=== PATIENT | female | born 1950 | race Two or more races ===

== ENCOUNTER 2024-12-03 08:25 | Inpatient (IN) | payer OTHER ==
[2024-12-03] VITALS (11 sets, daily range): BP systolic 92–113; BP diastolic 26–51; PULSE 67–82; RESP 15–20; TEMP 98.4–98.5; O2SAT 92–97
[~2024-12-03] VITALS: Ht 160 cm; Wt 76.8 kg
--- NOTE | 2024-12-03 09:04 | ED.PDOC ---
History of Present Illness HPI Comments 74-year-old female presents to the ER with prior surgical history of abscess removal, appendectomy in the chief complaint of general weakness with cough which started yesterday. EMS report that the patient informed them that she was recently discharged from [facility] after having removed an abscess in the buttock area. On scene the patient was hypotensive of 50/30 not being able to walk. Denies chills, fever, N/V/D, SOB, CP. No other associated symptoms, modifiers, recent injuries or sick contacts present at this time. Chief Complaint: General Weakness Time Seen by MD: 08:35 Reviewed Notes: Nurses Notes, Medications, Allergies Allergies: Coded Allergies: Codeine (Verified Allergy, Unknown, 12/03/24) Statins (Verified Allergy, Unknown, 12/03/24) Information Source: Patient Mode of Arrival: EMS Severity: Moderate Timing: Hours Duration: Since onset, Hours Prehospital treatment: None Past Medical History PAST MEDICAL HISTORY: Denies Surgical History: Appendectomy Surgical History (Other): Abscess removal in the sacral area BALLISTICS TESTER History: No Pertinent BALLISTICS TESTER History Family History Family History: Reviewed,noncontributory to illness, Unknown Social History Smoker: Non-Smoker Alcohol: Denies ETOH Use Drugs: Denies Drug Use Lives In: Home Constitutional: reports: weakness; denies: chills, diaphoresis, fatigue, fever, malaise, sweats, others EENTM: denies: blurred vision, double vision, ear bleeding, ear discharge, ear drainage, ear pain, ear ringing, eye pain, eye redness, hearing loss, mouth pain, mouth swelling, nasal discharge, nose bleeding, nose congestion, nose pain, photophobia, tearing, throat pain, throat swelling, voice changes, others Respiratory: reports: cough; denies: hemoptysis, orthopnea, SOB at rest, shortness of breath, SOB with excertion, stridor, wheezing, others Cardiovascular: denies: chest pain, dizzy spells, diaphoresis, Dyspnea on exe rtion, edema, irregular heart beat, left arm pain, lightheadedness, palpitations, PND, syncope, others Gastrointestinal: denies: abdomen distended, abdominal pain, blood streaked bowels, constipated, diarrhea, dysphagia, difficulty swallowing, hematemesis, melena, nausea, poor appetite, poor fluid intake, rectal bleeding, rectal pain, vomiting, others Genitourinary: denies: abnormal vagina bleeding, burning, dyspareunia, dysuria, flank pain, frequency, hematuria, incontinence, pain, , vagina discharge, urgency, others Neurological: denies: dizziness, fainting, headache, left sided numbness, left sided weakness, numbness, paresthesia, pre-existing deficit, right sided numbness, right sided weakness, seizure, speech problems, tingling, tremors, weakness, others Musculoskeletal: denies: back pain, gout, joint pain, joint swelling, muscle pain, muscle stiffness, neck pain, others Integumetry: reports: wounds (Sacrum has a 1 in incisional wound no discharge, mild redness surrounding it); denies: bruises, change in color, change in hair/nails, dryness, laceration, lesions, lumps, rash Allergic/Immunocompromised: denies: Difficulty Healing, Frequent Infections, Hives, Itching, others Hematologic/Lymphatic: denies: anemia, blood clots, easy bleeding, easy bruising, swollen glands, others Endocrine: denies: excessive hunger, excessive sweating, excessive thirst, excessive urination, flushing, intolerance to cold, intolerance to heat, unexplained weight gain, unexplained weight loss, others Psychiatric: denies: anxiety, bipolar disorder, depression, hopeless, panic disorder, schizophrenia, sleepless, suicidal, others All Other Systems: Reviewed and Negative Physical Exam Exam Comments Sacrum has a 1 in incisional wound no discharge, mild redness surrounding it General Appearance: No Apparent Distress, Normal HEENT: Normal ENT Inspection, Pharynx Normal, TMs Normal Neck: Full Range of Motion, Non-Tender, Normal, Normal Inspection Respiratory: Chest Non-Tender, Lungs Clear, No Accessory Muscle Use, No Respiratory Distress, Normal Breath Sounds Cardiovascular: No Edema, No JVD, No Murmur, No Gallop, Normal Peripheral Pulses, Regular Rate/Rhythm Breast Exam: Deferred Gastrointestinal: No Organomegaly, Non Tender, No Pulsatile Mass, Normal Bowel Sounds, Soft Genitalia: Deferred Pelvic: Deferred Rectal: Deferred Extremities: No calf tenderness, Normal capillary refill, Normal inspection, Normal range of motion, Non-tender, No pedal edema Musculoskeletal : Apperance: Normal Neurologic: Alert, cotton buyer II-XII nml as Tested, No Motor Deficits, Normal Affect, Normal Mood, No Sensory Deficits Cerebellar Function: Normal Reflexes: Normal Skin: Dry, Normal Color, Warm Lymphatic: No Adenopathy Was a procedure done? Was a procedure done?: No EKG EKG : Pulse Rate (adult): 87 [place]: Normal Cardiac Rhythm: NSR Block: None Hypertrophy: None ST: Normal Differential Dx Considerations may include: sepsis, dehydration, renal failure, electrolyte disorders, pneumonia, colitis, uti X-Ray, Labs, Meds, VS Vital Signs Date Time Temp Pulse Resp B/P (MAP) Pulse Ox O2 Delivery O2 Flow Rate FiO2 12/03/24 11:02 77 20 105/42 (63) 95 12/03/24 09:56 78 12/03/24 09:46 77 17 119/47 (71) 95 12/03/24 09:46 77 12/03/24 08:50 78 20 97 Room Air* 0 21 12/03/24 08:49 97.5 96 17 88/21 (43) 96 97.5 12/03/24 08:34 98.5 86 24 76/40 (52) 96 98.5 12/03/24 08:30 87 Lab Test 12/03/24 09:14 12/03/24 08:48 Range/Units White Blood Count 17.3 H 4.4-10.8 10^3/uL Red Blood Count 3.71 L 4.0-5.20 10^6/uL Hemoglobin 11.4 L 12.2-16.2 g/dL Hematocrit 33.6 L 36.0-46.0 % Mean Corpuscular Volume 90.6 80.0-100.0 fL Mean Corpuscular Hemoglobin 30.8 28.0-32.0 pg Mean Corpuscular Hemoglobin Concent 34.0 32.0-36.0 g/dL Red Cell Distribution Width 15.1 H 11.8-14.3 % Platelet Count 406 140-450 10^3/uL Mean Platelet Volume 6.9 6.9-10.8 fL Neutrophils (%) (Auto) 80.3 H 37.0-80.0 % Lymphocytes (%) (Auto) 10.3 10.0-50.0 % Monocytes (%) (Auto) 8.2 0.0-12.0 % Eosinophils (%) (Auto) 0.8 0.0-7.0 % Basophils (%) (Auto) 0.4 0.0-2.0 % Neutrophils # (Auto) 13.9 H 1.6-8.6 10 ^3/uL Lymphocytes # (Auto) 1.8 0.4-5.4 10 ^3/uL Monocytes # (Auto) 1.4 H 0-1.3 10 ^3/uL Eosinophils # (Auto) 0.1 0-0.8 10 ^3/uL Basophils # (Auto) 0.1 0-0.2 10 ^3/uL Nucleated Red Blood Cells 0.0 % Prothrombin Time 12.2 H 9.3-11.8 sec Prothrombin Time INR 1.17 H 0.9-1.15 Activated Partial Thromboplast Time 27.4 24.5-34.5 SEC Sodium Level 135 L 136-145 mmol/L Potassium Level 3.9 3.5-5.1 mmol/L Chloride Level 102 98-107 mmol/L Carbon Dioxide Level 26 20-31 mmol/L Anion Gap 7 5-15 Blood Urea Nitrogen 32 H 9-23 mg/dL Creatinine 1.78 H 0.550-1.02 mg/dL Glomerular Filtration Rate Calc 29 >90 mL/min BUN/Creatinine Ratio 18.0 10.0-20.0 Serum Glucose 137 H 74-106 mg/dL Lactic Acid Level 1.9 0.4-2.0 mmol/L Calcium Level 10.0 8.7-10.4 mg/dL Total Bilirubin 0.3 0.2-1.0 mg/dL Aspartate Amino Transferase (AST) 16 13-40 U/L Alanine Aminotransferase (ALT) 12 7-40 U/L Alkaline Phosphatase 54 46-116 U/L Total Protein 6.2 5.7-8.2 g/dL Albumin 3.8 3.2-4.8 g/dL Urine Color Pending Urine Clarity Pending Urine pH Pending Urine Specific [place] Pending Urine Protein Pending Urine Ketones Pending Urine Blood Pending Urine Nitrite Pending Urine Bilirubin Pending Urine Urobilinogen Pending Urine Leukocyte Esterase Pending Urine RBC Pending Urine Microscopic WBC Pending Urine Squamous Epithelial Cells Pending Urine Bacteria Pending Urine Glucose Pending Current Medications Medications (Trade) Dose Ordered Sig/Roberto Route Start Time Stop Time Status Last Admin Lactated Ringer's 1,550 ml @ 1,550 mls/hr ONCE ONCE IV 7/14/25 09:00 12/03/24 09:59 DC 12/03/24 09:25 Vancomycin HCl 200 ml @ 200 mls/hr ONCE ONCE IV 12/03/24 09:00 12/03/24 09:59 DC 12/03/24 09:29 Time of 1ST Reevaluation: 09:05 Reevaluation 1ST: Unchanged Time of 2ND Reevaluation: 12:01 Patient Education/Counseling: Diagnosis, Treatment, Prognosis Family Education/Counseling: No Family Present SEPSIS Sepsis Screen Date sepsis recognized/suspect: Dec 03, 2024 Time Sepsis recognized/suspect: 826 Recent Procedure: Yes On Antibiotic Therapy: Yes Respiratory Rate >20: Yes Heart Rate >90: No Temp<36 C (96.8 F) or >38.3 C: No SBP <90 or MAP <65 mmHG: Yes New Acute Mental Status Change: No Is the patient on CPAP, BIPAP,: No Physician Orders Urinalysis (12/03/24 08:53) Chest Portable (12/03/24 08:53) Accucheck (12/03/24 08:53) Blood Culture (12/03/24 08:53) Cefepime 1gm/ 50ml (Maxipime 1gm/50ml) (12/03/24 14:00) Notify Md If Map <65 Or Bp<90 (12/03/24 08:53) If Map<65 Start Vasopressor (12/03/24 08:53) Sepsis Reassesment After Fluid (12/03/24 09:53) Ct Ab Pel Wo Con-No Oral Or Iv (12/03/24 12:00) Vital Signs Date Time Temp Pulse Resp B/P (MAP) Pulse Ox O2 Delivery O2 Flow Rate FiO2 12/03/24 11:02 77 20 105/42 (63) 95 12/03/24 09:56 78 12/03/24 09:46 77 17 119/47 (71) 95 12/03/24 09:46 77 12/03/24 08:50 78 20 97 Room Air* 0 21 12/03/24 08:49 97.5 96 17 88/21 (43) 96 97.5 12/03/24 08:34 98.5 86 24 76/40 (52) 96 98.5 12/03/24 08:30 87 Laboratory Tests Test 12/03/24 09:14 Lactic Acid Level 1.9 mmol/L (0.4-2.0) White Blood Count 17.3 10^3/uL (4.4-10.8) H Medications Medications Dose Ordered Sig/Roberto Route Start Time Stop Time Status Last Admin Dose Admin Lactated Ringer's 1,550 ml @ 1,550 mls/hr ONCE ONCE IV 12/03/24 09:00 12/03/24 09:59 DC 12/03/24 09:25 Vancomycin HCl 200 ml @ 200 mls/hr ONCE ONCE IV 12/03/24 09:00 12/03/24 09:59 DC 12/03/24 09:29 Reassessment Post Fluid SEPSIS FOCUS EXAM(REASSESSMENT Sepsis reassessment focused exam completed. Date: 12/03/24 Time 09:58 Date of Reassessment: Dec 03, 2024 Time of Reassessment: 11:00 Temperature: 97.5 Systolic BP: 105 Blood Pressure Time: 11:00 Respiration: 20 Oxygen Saturation: 95 Pulse rate: 77 Pulse Location: Radial Pulse Strength: Normal Capillary Refill Exam: < 3 seconds Skin Temperature: Warm Skin Tugor: WNL Skin Color: WNL Fingernail Color: WNL Departure 1 Departure Time of Disposition: 12:04 Impression: Primary Impression: Sepsis Qualified Codes: A41.9 - Sepsis, unspecified organism; R65.21 - Severe sepsis with septic shock; N17.9 - Acute kidney failure, unspecified Additional Impressions: Prerenal acute renal failure Dehydration Diarrhea Qualified Codes: R19.7 - Diarrhea, unspecified Disposition: ADMITTED INPATIENT Admit to: [facility] Condition: Serious Discharged With: Self Critical Care Note Critical Care Time?: Yes (55 min-critical care time only) Critical care comment: Due to concerns for patients condition deteriorating, the care required my highest level of attention and readiness to intervene. I assessed the patient, reviewed the medical records, ordered the appropriate tests and treatments, then reassessed for results and responsiveness. I communicated with medical personnel and consultants and formulated a plan of care. Total critical care time excludes any procedures Stability Stability form required: No I personally scribed for DANI BANEGAS MD ([email or web address]) on 12/03/24 at 09:04. Electronically submitted by Husam Beckett ([email or web address]). I personally scribed for DANI [facility]AS [facility] on 12/03/24 at 09:46. Electronically submitted by Husam Beckett ([email or web address]). DANI BANEGAS MD Dec 03, 2024 09:04
--- NOTE | 2024-12-03 09:17 | ECG ---
[facility] Test Date: 2024-12-03 Test Time: 08:30:26 Pat Name: TONO JIMÉNEZ Department: ED Room: Gender: F Cupola Tender: : 1950 Requested By: DANI BANEGAS Order Number: [id number] Reading MD: Chilo Barnes Measurements Intervals [place] Rate: 87 P: 63 [place]: 163 QRS: 60 QRSD: 107 T: 32 QT: 459 QTc: 553 Interpretive Statements Sinus rhythm Atrial premature complex Low voltage, precordial leads Borderline abnrm T, anterolateral leads Prolonged QT interval Baseline wander in lead(s) II,III,aVF Electronically Signed On 12-03-2024 19:34:41 PDT by Chilo Barnes Please click the below link to view image of tracing.
--- NOTE | 2024-12-03 09:19 | DVH ---
CHEST RADIOGRAPH Indication: sepsis Technique: Single frontal view of the chest was obtained COMPARISON: None FINDINGS: Lines and Tubes: None Lungs: Clear Pleura: No effusion. No pneumothorax. Cardiomediastinal contours: Unremarkable Bones: Unremarkable IMPRESSION: No acute disease.
[2024-12-03] MEDS: LACTATED RINGER'S 1,550 ML IV ONE (09:25)
[2024-12-03] MEDS: VANCOMYCIN 1GM/200ML PM 200 ML IV ONE (09:29)
[2024-12-03 09:39] LABS: Hematocrit 33.6 % (36.0-46.0); Hemoglobin 11.4 g/dL (12.2-16.2); Mean Corpuscular Hemoglobin 30.8 pg (28.0-32.0); Mean Corpuscular Volume 90.6 fL (80.0-100.0); Nucleated Red Blood Cells % 0.0 %
[2024-12-03 09:48] LABS: INR 1.17 (0.9-1.15); Partial Thromboplastin Time 27.4 SEC (24.5-34.5); Prothrombin Time 12.2 sec (9.3-11.8)
[2024-12-03 09:54] LABS: Alanine Aminotransferase 12 U/L (7-40); Albumin 3.8 g/dL (3.2-4.8); Alkaline Phosphatase 54 U/L (46-116); Anion Gap 7 (5-15); BUN/Creatinine Ratio 18.0 (10.0-20.0); Calcium 10.0 mg/dL (8.7-10.4); Carbon Dioxide 26 mmol/L (20-31); Chloride 102 mmol/L (98-107); Potassium 3.9 mmol/L (3.5-5.1); Total Protein 6.2 g/dL (5.7-8.2)
[2024-12-03 09:57] LABS: Bilirubin, Total 0.3 mg/dL (0.2-1.0); Blood Urea Nitrogen 32 mg/dL (9-23); Glucose 137 mg/dL (74-106); Sodium 135 mmol/L (136-145)
--- NOTE | 2024-12-03 09:59 | ECG ---
[facility] Test Date: 2024-12-03 Test Time: 09:56:05 Pat Name: TONO JIMÉNEZ Department: ER Room: Gender: F School Director: : 1950 Requested By: DANI BANEGAS Order Number: [id number] Reading MD: Chilo Barnes Measurements Intervals [place] Rate: 78 P: 79 MD: 195 QRS: 47 QRSD: 114 T: 31 QT: 399 QTc: 455 Interpretive Statements Sinus rhythm Borderline intraventricular conduction delay Low voltage, precordial leads Nonspecific T abnormalities, anterior leads Electronically Signed On 12-03-2024 19:35:37 PDT by Chilo Barnes Please click the below link to view image of tracing.
[2024-12-03 12:08] LABS: Urine Budding Yeast OCCASIONAL /hpf (None Seen); Urine Protein, UAD Negative (Negative)
[2024-12-03] MEDS: NOREPINEPHRINE 8 MG/250ML KIT 250 ML IV ONE (12:50)
[2024-12-03] MEDS: NOREPINEPHRINE 8 MG/250ML KIT 250 ML IV SCH (13:00)
--- NOTE | 2024-12-03 13:04 | DVH ---
Indication: r/o colitis Technique: CT axial images of the abdomen and pelvis are obtained without contrast. Coronal and sagit yvonne reformats were obtained. Radiation Dose Information: CTDI volume is 17.16 mGy. Dose-length product is 895.01 mGy*cm Comparison: None FINDINGS: There is limited interpretation of the abdomen and pelvis without administration of intravenous contr ast. Lung bases demonstrate atelectasis. Tiny bilateral pleural effusions. Adrenal glands, spleen, pancreas unremarkable in shape. m no CT evidence for cholelithiasis. Left hep atic lobe measuring 7 mm, not adequately characterized. The kidneys demonstrate no hydronephrosis. Nonobstructing right renal calculus measuring 2 mm. Stomach is partially distended. Small bowel loops are normal in caliber. There is right perianal/medial gluteal region soft tissue stranding and soft tissue emphysema. Recta l/ anal wall thickening. Colonic diverticula. Large volume stool throughout the colon. Sigmoid wall t hickening with mild surrounding stranding. Abdominal aortic atherosclerotic disease. Bladder decompressed by Chang catheter. No inguinal lymphad enopathy. Moderate to advanced lumbar degenerative disc disease most pronounced in the lumbar spine. Multilevel vacuum disc phenomena. IMPRESSION: Right perianal region/right medial soft tissue stranding and soft tissue emphysema which could be sec ondary to infectious, inflammatory etiologies. There is associated rectal/anal wall thickening, poss ibly secondary to proctocolitis. Recommend GI consultation to exclude any type of underlying rectal/ anal mass/lesion. Large volume stool within the colon. Colonic diverticular disease. Sigmoid wall thickening with surrounding stranding may represent diver ticulitis. Recommend GI consultation for colonoscopy once acute symptoms resolve to exclude underlyi ng sigmoid colon lesion. Tiny bilateral pleural effusions. Atherosclerotic, coronary artery calcification disease. Indeterminate left hepatic lobe hypodense lesion measuring 7 mm. Further evaluation with a multiphasi c MRI abdomen with and without contrast can be obtained to evaluate. Other findings as described
[2024-12-03] MEDS ORDERED: ONDANSETRON HCL 4 MG/2 ML VIAL IV PRN (13:15)
[2024-12-03] MEDS ORDERED: NITROGLYCERIN 0.4 MG SL TAB SL PRN ×2 (13:15→13:45)
[2024-12-03] MEDS ORDERED: VANCOMYCIN PER PHARMACY 0 MG IV SCH (13:15)
[2024-12-03] MEDS ORDERED: DOCUSATE SOD 100 MG CAP PO PRN (13:15)
[2024-12-03] MEDS ORDERED: MORPHINE SULFATE INJ 2 MG/ml SYRG IV PRN ×2 (13:15→14:15)
--- NOTE | 2024-12-03 13:30 | DVHHP2 ---
History of Present Illness Reason for Visit: Generalized weakness History of Present Illness The patient is a 74-year-old female with past medical history of appendicitis who presented to [facility] ED with complaint of generalized weakness. As reported by EMS, patient was recently discharged from [facility] after having remove an abscess in the buttocks area, hypotensive on the scene of 50/30, unable to work. Patient was stabilized EN route to our facility ED. patient was seen and evaluated in the ED, laboratory data shows WBC 17.3, hemoglobin 11.4, hematocrit 33.6, platelets 406, sodium 135, potassium 3.9, BUN 32, creatinine 1.78, glucose 137, calcium 10.0, blood pressure 88/21 trending up to 90/37, heart rate 72, temperature 97.6 F, O2 saturation 96% on oxygen. Abdomen/pelvis CT revealing right perianal region/right medial soft tissue stranding and soft tissue emphysema which could be secondary to infectious, inflammatory etiologies; this is associated rectal/and now wall thickening, possibly secondary to proctocolitis. Patient was started on IV Levophed, antibiotic regimen vancomycin, please see medication orders section in the computer. On my assessment, patient denied chest pain, no headache, no dizziness, no diaphoresis, no shortness of breath, no nausea, no vomiting, no fever, no chills. Patient was admitted for further evaluation and medical management. Past Medical History Appendicitis, scrotal abscess Past Surgical History Appendectomy, Abscess removal in the sacral area Family History Reviewed, noncontributory to the management of this case. Past Social History The patient lives at home, denies smoking, alcohol or illicit drugs abuse. Review of Systems Constitutional: Yes: Weakness; No: Fever, Chills, Sweats, Malaise, Other Eyes: No: Pain, Vision change, Conjunctivae inflammation, Eyelid inflammation, Other, Redness ENT: No: Ear pain, Ear discharge, Nose pain, Nose discharge, Nose congestion, Mouth pain, Mouth swelling, Throat pain, Throat swelling, Other Respiratory: Cough; No: Dry, Shortness of breath, SOB with excertion, Wheezing, Hemoptysis, Pleuritic Pain, Sputum, Wheezing, Other Cardiovascular: Other (Hypotension); No: Chest Pain, Palpitations, Orthopnea, Paroxysmal Noc. Dyspnea, Edema, Lt Headedness Gastrointestinal: No: Nausea, Vomiting, Abdominal Pain, Diarrhea, Constipation, Melena, Hematochezia, Other Genitourinary: No Dysuria, No Frequency, No Incontinence, No Hematuria, No Retention, No Other Musculoskeletal: No: other, neck pain, shoulder pain, arm pain, back pain, hand pain, leg pain, foot pain Skin: Other (Sacrum has a 1 in incisional wound no discharge, mild redness surrounding it.); No: Rash, Lesions, Jaundice, Bruising Neurological: Weakness; No: Numbness, Incoordination, Change in speech, Confusion, Seizures, Other Allergies: Coded Allergies: Codeine (Verified Allergy, Unknown, 12/03/24) Statins (Verified Allergy, Unknown, 12/03/24) Medications Current Medications Medications Dose Ordered Sig/Roberto Route Start Time Stop Time Status Last Admin Dose Admin Cefepime HCl 50 ml @ 12.5 mls/hr Q8HR IV 12/03/24 14:00 Norepinephrine Bitartrate 250 ml @ 3.75 mls/hr Q24H IV 12/03/24 13:00 12/03/24 13:00 3.75 MLS/HR Exam Vital Signs Vital Signs Date Time Temp Pulse Resp B/P (MAP) Pulse Ox O2 Delivery O2 Flow Rate FiO2 12/03/24 13:00 90/37 12/03/24 12:44 71 18 95 12/03/24 08:50 Room Air* 0 21 12/03/24 08:49 97.5 97.5 General Appearance: Alert, Oriented X3, Cooperative, No acute distress HEENT: Atraumatic, PERRLA, EOMI, Mucous membr. moist/pink Respiratory: Normal air movement Cardiovascular: Regular rate, Normal S1, Normal S2, No murmurs Abdominal: Normal bowel sounds, Soft, No tenderness, No hepatospenomegaly, No masses Extremities: No clubbing, No cyanosis, No edema, Normal pulses, No tenderness/swelling Skin: No rashes, No significant lesion Neuro: Normal speech, Normal tone, Sensation intact, Cranial nerves 3-12 NL, Reflexes 2+, Other (Generalized weakness) Psych/Mental Status: Mental status NL, Mood NL Labs/Xrays Labs Test 12/03/24 09:14 12/03/24 08:48 Range/Units White Blood Count 17.3 H 4.4-10.8 10^3/uL Red Blood Count 3.71 L 4.0-5.20 10^6/uL Hemoglobin 11.4 L 12.2-16.2 g/dL Hematocrit 33.6 L 36.0-46.0 % Mean Corpuscular Volume 90.6 80.0-100.0 fL Mean Corpuscular Hemoglobin 30.8 28.0-32.0 pg Mean Corpuscular Hemoglobin Concent 34.0 32.0-36.0 g/dL Red Cell Distribution Width 15.1 H 11.8-14.3 % Platelet Count 406 140-450 10^3/uL Mean Platelet Volume 6.9 6.9-10.8 fL Neutrophils (%) (Auto) 80.3 H 37.0-80.0 % Lymphocytes (%) (Auto) 10.3 10.0-50.0 % Monocytes (%) (Auto) 8.2 0.0-12.0 % Eosinophils (%) (Auto) 0.8 0.0-7.0 % Basophils (%) (Auto) 0.4 0.0-2.0 % Neutrophils # (Auto) 13.9 H 1.6-8.6 10 ^3/uL Lymphocytes # (Auto) 1.8 0.4-5.4 10 ^3/uL Monocytes # (Auto) 1.4 H 0-1.3 10 ^3/uL Eosinophils # (Auto) 0.1 0-0.8 10 ^3/uL Basophils # (Auto) 0.1 0-0.2 10 ^3/uL Nucleated Red Blood Cells 0.0 % Prothrombin Time 12.2 H 9.3-11.8 sec Prothrombin Time INR 1.17 H 0.9-1.15 Activated Partial Thromboplast Time 27.4 24.5-34.5 SEC Sodium Level 135 L 136-145 mmol/L Potassium Level 3.9 3.5-5.1 mmol/L Chloride Level 102 98-107 mmol/L Carbon Dioxide Level 26 20-31 mmol/L Anion Gap 7 5-15 Blood Urea Nitrogen 32 H 9-23 mg/dL Creatinine 1.78 H 0.550-1.02 mg/dL Glomerular Filtration Rate Calc 29 >90 mL/min BUN/Creatinine Ratio 18.0 10.0-20.0 Serum Glucose 137 H 74-106 mg/dL Lactic Acid Level 1.9 0.4-2.0 mmol/L Calcium Level 10.0 8.7-10.4 mg/dL Total Bilirubin 0.3 0.2-1.0 mg/dL Aspartate Amino Transferase (AST) 16 13-40 U/L Alanine Aminotransferase (ALT) 12 7-40 U/L Alkaline Phosphatase 54 46-116 U/L Total Protein 6.2 5.7-8.2 g/dL Albumin 3.8 3.2-4.8 g/dL Urine Color Yellow Yellow Urine Clarity Clear Clear Urine pH 6.0 5.0-9.0 Urine Specific Haughton 1.012 1.001-1.035 Urine Protein Negative Negative Urine Ketones Negative Negative Urine Blood Negative Negative /uL Urine Nitrite Negative Negative Urine Bilirubin Negative Negative Urine Urobilinogen Normal Negative mg/dL Urine Leukocyte Esterase Negative Negative /uL Urine RBC 1 0 - 4 /hpf Urine Microscopic WBC 1 0-5 /HPF Urine Squamous Epithelial Cells Few <5 /hpf Urine Bacteria None seen None Seen /hpf Urine Yeast (Budding) Occasional None Seen /hpf Urine Glucose Normal Normal mg/dL PATIENT: TONO JIMÉNEZ ACCT: [id number] UNIT: [id number] : 1950 LOC: ER ROOM / BED: / AGE / SEX: 74 / F ADM STATUS: REG ER SERVICE 99 ORDERING PHYSICIAN: DANI BANEGAS MD PROCEDURE(s): ABPL - CT AB PEL WO CON-NO ORAL OR IV REASON: r/o colitis ORDER NUMBER(s): [id number], ACCESSION NUMBER(s): [id number] Indication: r/o colitis Technique: CT axial images of the abdomen and pelvis are obtained without contrast. Coronal and sagittal reformats were obtained. Radiation Dose Information: CTDI volume is 17.16 mGy. Dose-length product is 895.01 mGy*cm Comparison: None FINDINGS: There is limited interpretation of the abdomen and pelvis without administration of intravenous contrast. Lung bases demonstrate atelectasis. Tiny bilateral pleural effusions. Adrenal glands, spleen, pancreas unremarkable in shape. m no CT evidence for cholelithiasis. Left hepatic lobe measuring 7 mm, not adequately characterized. The kidneys demonstrate no hydronephrosis. Nonobstructing right renal calculus measuring 2 mm. Stomach is partially distended. Small bowel loops are normal in caliber. There is right perianal/medial gluteal region soft tissue stranding and soft tissue emphysema. Rectal/anal wall thickening. Colonic diverticula. Large volume stool throughout the colon. Sigmoid wall thickening with mild surrounding stranding. Abdominal aortic atherosclerotic disease. Bladder decompressed by Chang catheter. No inguinal lymphadenopathy. Moderate to advanced lumbar degenerative disc disease most pronounced in the lumbar spine. Multilevel vacuum disc phenomena. IMPRESSION: Right perianal region/right medial soft tissue stranding and soft tissue emphysema which could be secondary to infectious, inflammatory etiologies. There is associated rectal/anal wall thickening, possibly secondary to proctocolitis. Recommend GI consultation to exclude any type of underlying rectal/ anal mass/lesion. Large volume stool within the colon. Colonic diverticular disease. Sigmoid wall thickening with surrounding stranding may represent diverticulitis. Recommend GI consultation for colonoscopy once acute symptoms resolve to exclude underlying sigmoid colon lesion. Tiny bilateral pleural effusions. Atherosclerotic, coronary artery calcification disease. Indeterminate left hepatic lobe hypodense lesion measuring 7 mm. Further evaluation with a multiphasic MRI abdomen with and without contrast can be obtained to evaluate. Other findings as described ORDERING PHYSICIAN: DANI BANEGAS MD PROCEDURE(s): CXRP - CHEST PORTABLE REASON: sepsis ORDER NUMBER(s): [id number], ACCESSION NUMBER(s): [id number] CHEST RADIOGRAPH Indication: sepsis Technique: Single frontal view of the chest was obtained COMPARISON: None FINDINGS: Lines and Tubes: None Lungs: Clear Pleura: No effusion. No pneumothorax. Cardiomediastinal contours: Unremarkable Bones: Unremarkable IMPRESSION: No acute disease. SEPSIS Sepsis Screen Date sepsis recognized/suspect: Dec 03, 2024 Time Sepsis recognized/suspect: 914 Recent Procedure: No On Antibiotic Therapy: No Respiratory Rate >20: No Heart Rate >90: No Temp<36 C (96.8 F) or >38.3 C: No SBP <90 or MAP <65 mmHG: Yes New Acute Mental Status Change: No Is the patient on CPAP, BIPAP,: No Physician Orders Chest Portable (12/03/24 08:53) Accucheck (12/03/24 08:53) Blood Culture (12/03/24 08:53) Cefepime 1gm/ 50ml (Maxipime 1gm/50ml) (12/03/24 14:00) Notify Md If Map <65 Or Bp<90 (12/03/24 08:53) If Map<65 Start Vasopressor (12/03/24 08:53) Sepsis Reassesment After Fluid (12/03/24 09:53) Ct Ab Pel Wo Con-No Oral Or Iv (12/03/24 12:00) Norepinephrine 8 Mg/250ml Kit (Levophed) (12/03/24 13:00) Vancomycin Per Pharmacy (12/03/24 13:15) * Cardiology Consult (12/03/24 13:14) *[facility] (12/03/24 13:14) Admit (12/03/24 13:14) Allergies (12/03/24 13:14) Code Status (12/03/24 13:14) 0.9% Ns 1000 Ml (12/03/24 13:15) Oxygen Per Hour (12/03/24 13:14) Ondansetron Hcl (Zofran) (12/03/24 13:15) Docusate Sodium Capsule (Colace Capsule) (12/03/24 13:15) Fall Risk Precautions In Place QSHIFT (12/03/24 13:14) Complete Blood Count (12/04/24 04:00) Comprehensive Metabolic Panel (12/04/24 04:00) Cardiac Diet-2gna,Lofat,Lochol (12/03/24 Lunch) Condition: Serious (12/03/24 13:14) Acetaminophen Tablet (Tylenol Tablet) (12/03/24 13:15) Maintain Bed Rest (12/03/24 13:14) Sequential Compression Device (12/03/24 ) Nitroglycerin Sublingual (Ntrostat Subli (12/03/24 13:15) Morphine Sulfate Injection (12/03/24 13:15) Stat Ekg For Chest Pain (12/03/24 13:14) Notify Md Of Changes From Base (12/03/24 13:14) Solid Die Cutter For 24 Hours (12/03/24 13:14) Emergency Dysrhythmia Protocol (12/03/24 13:14) Rhythm Strips Once Every Shift (12/03/24 13:14) Oxygen By Nasal Cannula (12/03/24 13:14) Vital Signs Date Time Temp Pulse Resp B/P (MAP) Pulse Ox O2 Delivery O2 Flow Rate FiO2 7/14/25 13:00 90/37 12/03/24 12:44 71 18 90/37 (54) 95 12/03/24 12:00 79 12/03/24 11:02 77 20 105/42 (63) 95 12/03/24 09:56 78 12/03/24 09:46 77 17 119/47 (71) 95 12/03/24 09:46 77 12/03/24 08:50 78 20 97 Room Air* 0 21 12/03/24 08:49 97.5 96 17 88/21 (43) 96 97.5 12/03/24 08:34 98.5 86 24 76/40 (52) 96 98.5 12/03/24 08:30 87 Laboratory Tests Test 12/03/24 09:14 Lactic Acid Level 1.9 mmol/L (0.4-2.0) White Blood Count 17.3 10^3/uL (4.4-10.8) H Medications Medications Dose Ordered Sig/Roberto Route Start Time Stop Time Status Last Admin Dose Admin Lactated Ringer's 1,550 ml @ 1,550 mls/hr ONCE ONCE IV 12/03/24 09:00 12/03/24 09:59 DC 12/03/24 09:25 1,550 MLS/HR Norepinephrine Bitartrate 250 ml @ 3.75 mls/hr Q24H IV 12/03/24 13:00 12/03/24 13:00 3.75 MLS/HR Vancomycin HCl 200 ml @ 200 mls/hr ONCE ONCE IV 12/03/24 09:00 12/03/24 09:59 DC 12/03/24 09:29 200 MLS/HR Reassessment Post Fluid Date of Reassessment: Dec 03, 2024 Time of Reassessment: 11:00 Temperature: 97.5 Systolic BP: 105 Blood Pressure Time: 11:00 Respiration: 20 Oxygen Saturation: 95 Pulse rate: 77 Pulse Location: Radial Pulse Strength: Normal Capillary Refill Exam: < 3 seconds Skin Temperature: Warm Skin Tugor: WNL Skin Color: WNL Fingernail Color: WNL Assessment/Plan Assessment/Plan Sepsis, unspecified organism Severe sepsis with septic shock Dehydration Prerenal acute renal failure Diarrhea, unspecified Generalized weakness Acute kidney failure, unspecified Plan 1. Admit to intensive care unit 2. Breathing treatment 3. Pain control management 4. IV antibiotic management 5. Management of fluids and electrolytes 6. Consultation for Cardiology/Nephrology 7. Diagnostic test abdomen/pelvis CT 8. DVT prophylaxis on SCDs 9. Repeat labs CBC, CMP in a.m. 10. Home medication reviewed and reconciled 11. Continue with current medical management 12. Treatment plan discussed with patient and RN. Patient verbalized understanding. Plan discussed with: Patient, Other (RN) My Orders Orders - LARISSA CLEMENTS DNP Procedure Category Date Status Time Vancomycin Per PHA 12/03/24 Transmitted Pharmacy 13:15 * Cardiology Consult CONS 12/03/24 Transmitted 13:14 *[facility] CONS 12/03/24 Transmitted -[place] 13:14 Admit ADMIT 12/03/24 Transmitted 13:14 Allergies [facility] 12/03/24 Transmitted 13:14 Code Status CODE 12/03/24 Transmitted 13:14 0.9% Ns 1000 Ml PHA 12/03/24 Transmitted 13:15 Oxygen Per Hour RT 12/03/24 Transmitted 13:14 Ondansetron Hcl [facility] 12/03/24 Transmitted (Zofran) 13:15 Docusate Sodium [facility] 12/03/24 Transmitted Capsule (Colace 13:15 Fall Risk Precautions [facility] 12/03/[address] 13:14 Complete Blood Count LAB 12/04/24 Verified 04:00 Comprehensive LAB 12/04/24 Verified Metabolic Panel 04:00 Cardiac DIET 12/03/24 Transmitted Diet-2gna,Lofat,Lochol Lunch Condition: Serious [facility] 12/03/24 Transmitted 13:14 Acetaminophen Tablet [facility] 12/03/24 Transmitted (Tylenol Tablet) 13:15 Maintain Bed Rest [facility] 12/03/24 Transmitted 13:14 Sequential [facility] 12/03/24 Transmitted Compression Device Nitroglycerin [facility] 12/03/24 Transmitted Sublingual (Ntrostat 13:15 Morphine Sulfate [facility] 12/03/24 Transmitted Injection 13:15 Stat Ekg For Chest [facility] 12/03/24 Transmitted Pain 13:14 Notify Of Changes [facility] 12/03/24 Transmitted From Base 13:14 Solid Die Cutter For [facility] 12/03/24 Transmitted 24 Hours 13:14 Emergency Dysrhythmia [facility] 12/03/24 Transmitted Protocol 13:14 Rhythm Strips Once [facility] 12/03/24 Transmitted Every Shift 13:14 Oxygen By Nasal RT 12/03/24 Transmitted Cannula 13:14 Problem List: (1) Sepsis, unspecified organism (2) Severe sepsis with septic shock (3) Dehydration (4) Diarrhea, unspecified (5) Prerenal acute renal failure (6) Generalized weakness (7) Acute kidney failure, unspecified Date of Service: Dec 03, 2024 Billing Provider: LARISSA CLEMENTS DNP Common Visit Codes: [id number] INP/OBS CARE (HIGH) LARISSA CLEMENTS DNP Dec 03, 2024 13:30
[2024-12-03] MEDS: CEFEPIME 1GM/ 50ML 50 ML IV SCH (14:18)
[2024-12-03] MEDS: SODIUM CHLORIDE 0.9% 1,000 ML IV SCH (14:19)
[2024-12-03 15:37] LABS: Triglycerides 115.0 mg/dL (< 150)
[2024-12-03 15:38] LABS: Magnesium 1.7 mg/dL (1.6-2.6)
[2024-12-03 15:39] LABS: Cholesterol 129.0 mg/dL (< 200)
[2024-12-03 15:40] LABS: HDL Cholesterol 31.0 mg/dL (40-59)
--- NOTE | 2024-12-03 16:35 | DVHINCON2 ---
Date Seen: Dec 03, 2024 Referring Physician CINDY Sutton Reason for Consultation Hypotension History of Present Illness This is a 74-year-old female patient who presents to emergency room with chief complaint of generalized weakness, chills, and cough for approximately one week. The patient reports that she was recently seen at [facility] where she was diagnosed with a abscess on her buttock and underwent an incision and drainage. She states that she was sent home on antibiotics. Cardiology has been consulted at this time for hypotension. Initial twelve lead electrocardiogram reveals normal sinus rhythm with PAC, prolonged QTC interval and artifact seen in multiple leads. At the time of assessment, the patient is in normal sinus rhythm on nephrologist with frequent PACs and PVCs. No troponin levels drawn at time of assessment. The patient denies any cardiac symptoms at time of assessment. Significant past medical history includes hypertension, buttock abscess status post I&D, tobacco use, and dementia. Past Medical History Past medical history reviewed. No other significant than mentioned above. Past Surgical History Hysterectomy Corneal transplant Family History Family history reviewed. Social History Patient has a 15 pack-year history, quit smoking approximately 40 years ago Denies any alcohol use Denies any illicit drug use Allergies: Coded Allergies: Codeine (Verified Allergy, Unknown, 12/03/24) Statins (Verified Allergy, Unknown, 12/03/24) Home Meds Home medications reviewed. Current Medications Current Medications Medications (Trade) Dose Ordered Sig/Roberto Route PRN Reason Start Time Stop Time Status Last Admin Cefepime HCl 50 ml @ 12.5 mls/hr Q8HR IV 12/03/24 14:00 12/03/24 14:18 Norepinephrine Bitartrate 250 ml @ 3.75 mls/hr Q24H IV 12/03/24 13:00 12/03/24 13:00 Vancomycin HCl 0 ml @ 0 mls/hr UD IV 12/03/24 13:15 Sodium Chloride 1,000 ml @ 60 mls/hr [id number] IV 12/03/24 13:15 12/03/24 14:19 Ondansetron HCl (Zofran) 4 mg Q4HP PRN IV NAUSEA / VOMITING 12/03/24 13:15 Docusate Sodium (Colace Capsule) 100 mg BIDPRN PRN PO FOR CONSTIPATION 12/03/24 13:15 Acetaminophen (Tylenol Tablet) 650 mg Q6HP PRN PO PAIN SCALE 1-3 OR TEMP>100.4 12/03/24 13:15 Nitroglycerin (Ntrostat Sublingual) 0.4 mg Q5MINP PRN SL FOR CHEST PAIN 12/03/24 13:15 12/03/24 14:11 DC Morphine Sulfate 2 mg Q30M PRN IV FOR CHEST PAIN 12/03/24 13:15 12/03/24 14:11 DC Morphine Sulfate 2 mg Q30M PRN IV FOR CHEST PAIN 12/03/24 14:15 Nitroglycerin (Ntrostat Sublingual) 0.4 mg Q5MINP PRN SL FOR CHEST PAIN 12/03/24 13:45 Review of Systems Constitutional: Generalized weakness, chills Ears, Nose, & Throat: No symptom reported Eyes: No symptom reported Neurological: No symptoms reported Pulmonary/Respiratory: Cough Cardiovascular: No symptom reported Gastrointestinal: No symptom reported Genitourinary: No symptom reported Musculoskeletal: No symptom reported Skin: No symptom reported Psychiatric: No symptom reported Endocrine: No symptom reported Hematologic/Lymphatic: No symptom reported Vital Signs Vital Signs Date Time Temp Pulse Resp B/P (MAP) Pulse Ox O2 Delivery O2 Flow Rate FiO2 12/03/24 15:15 67 17 100/32 (54) 95 12/03/24 08:50 Room Air* 0 21 12/03/24 08:49 97.5 97.5 Physical Exam General Appearance: Cooperative. Well-developed. Well-nourished. No acute distress. Pulmonary/Respiratory: Clear, bilateral breaths sounds. Cardiovascular/Chest: Regular rate and rhythm. Peripheral Pulses: 2+ Radial (R). 2+ Radial (L). 2+ Pedal (R). 2+ Pedal (L) Abdominal Exam: Normal bowel sounds. Ankle Exam: Negative ankle edema Lower extremities: Negative lower extremity edema Neuro/Mental Status: A/OX3, coherent but forgetful. Thoughts/Psych: Normal thought pattern. Appropriate mood and affect. Good judgment and insight. Appearance: No acute distress. Skin Exam: Normal inspection. Normal color. Warm and dry. Labs/Diagnostic Data Labs Test 12/03/24 14:10 12/03/24 09:14 12/03/24 08:48 Range/Units POC Glucose 97 70-106 mg/dl White Blood Count 17.3 H 4.4-10.8 10^3/uL Red Blood Count 3.71 L 4.0-5.20 10^6/uL Hemoglobin 11.4 L 12.2-16.2 g/dL Hematocrit 33.6 L 36.0-46.0 % Mean Corpuscular Volume 90.6 80.0-100.0 fL Mean Corpuscular Hemoglobin 30.8 28.0-32.0 pg Mean Corpuscular Hemoglobin Concent 34.0 32.0-36.0 g/dL Red Cell Distribution Width 15.1 H 11.8-14.3 % Platelet Count 406 140-450 10^3/uL Mean Platelet Volume 6.9 6.9-10.8 fL Neutrophils (%) (Auto) 80.3 H 37.0-80.0 % Lymphocytes (%) (Auto) 10.3 10.0-50.0 % Monocytes (%) (Auto) 8.2 0.0-12.0 % Eosinophils (%) (Auto) 0.8 0.0-7.0 % Basophils (%) (Auto) 0.4 0.0-2.0 % Neutrophils # (Auto) 13.9 H 1.6-8.6 10 ^3/uL Lymphocytes # (Auto) 1.8 0.4-5.4 10 ^3/uL Monocytes # (Auto) 1.4 H 0-1.3 10 ^3/uL Eosinophils # (Auto) 0.1 0-0.8 10 ^3/uL Basophils # (Auto) 0.1 0-0.2 10 ^3/uL Nucleated Red Blood Cells 0.0 % Prothrombin Time 12.2 H 9.3-11.8 sec Prothrombin Time INR 1.17 H 0.9-1.15 Activated Partial Thromboplast Time 27.4 24.5-34.5 SEC Sodium Level 135 L 136-145 mmol/L Potassium Level 3.9 3.5-5.1 mmol/L Chloride Level 102 98-107 mmol/L Carbon Dioxide Level 26 20-31 mmol/L Anion Gap 7 5-15 Blood Urea Nitrogen 32 H 9-23 mg/dL Creatinine 1.78 H 0.550-1.02 mg/dL Glomerular Filtration Rate Calc 29 >90 mL/min BUN/Creatinine Ratio 18.0 10.0-20.0 Serum Glucose 137 H 74-106 mg/dL Hemoglobin A1c 5.5 <5.7 % A1C Lactic Acid Level 1.9 0.4-2.0 mmol/L Calcium Level 10.0 8.7-10.4 mg/dL Magnesium Level 1.7 1.6-2.6 mg/dL Total Bilirubin 0.3 0.2-1.0 mg/dL Aspartate Amino Transferase (AST) 16 13-40 U/L Alanine Aminotransferase (ALT) 12 7-40 U/L Alkaline Phosphatase 54 46-116 U/L Total Protein 6.2 5.7-8.2 g/dL Albumin 3.8 3.2-4.8 g/dL Triglycerides Level 115 < 150 mg/dL Cholesterol Level 129 < 200 mg/dL LDL Cholesterol 81 < 100 mg/dL HDL Cholesterol 31 L 40-59 mg/dL Thyroid Stimulating Hormone (TSH) 1.07 0.55-4.78 uIU/mL Urine Color Yellow Yellow Urine Clarity Clear Clear Urine pH 6.0 5.0-9.0 Urine Specific [place] 1.012 1.001-1.035 Urine Protein Negative Negative Urine Ketones Negative Negative Urine Blood Negative Negative /uL Urine Nitrite Negative Negative Urine Bilirubin Negative Negative Urine Urobilinogen Normal Negative mg/dL Urine Leukocyte Esterase Negative Negative /uL Urine RBC 1 0 - 4 /hpf Urine Microscopic WBC 1 0-5 /HPF Urine Squamous Epithelial Cells Few <5 /hpf Urine Bacteria None seen None Seen /hpf Urine Yeast (Budding) Occasional None Seen /hpf Urine Glucose Normal Normal mg/dL Assessment Hypotension in the setting of severe sepsis Rule out structural heart disease Prolonged QTc interval History of hypertension Right perianal soft tissue emphysema Acute kidney injury Dementia History of tobacco use Plan/Recommendation We will continue with the following plan/recommendations (Dr. Lee): We will proceed with obtaining a transthoracic echocardiogram to evaluate c ardiac function. At the time of assessment, the patient is now off of vasopressor therapy. Hypotension likely in the setting of sepsis. Patient also admits to taking her antihypertensive medications atenolol and lisinopril this morning prior to emergency room arrival. Hold antihypertensives until blood pressure stable. Avoid medications that will further prolong QT interval as this places the patient at risk for torsades de pointes. Monitor and replete electrolytes as needed. Antibiotics per primary care team. Consider GI consult for abdomen and pelvis CT findings. In the setting of an unremarkable transthoracic echocardiogram, there is no further inpatient cardiac workup indicated at this time. Thank you for allowing us to care for this patient. Eric domínguez call with any questions or concerns. Critical time spent: 44 minutes This medical document was created using an electronic medical record system with voice recognition software and computerized dictation system. Although this document has been carefully reviewed, there might still be some phonetic and typographical errors. Occasional wrong-word or ``sound-alike substitutions may have occurred due to the inherent limitations of voice recognition software. These areas are purely typographical due to imperfections of the software programs and do not reflect any compromise in the patient's medical care. Please read the chart carefully and recognize, using context, where these substitutions have occurred. Plan discussed with: Patient NYHA Physical activity limitations: NA Date of Service: Dec 03, 2024 Billing Provider: CHYNA PAREDES Cardiology Common Codes: 34371-YTEJWMA INP/OBS CARE (High) Cardiology Consultation Codes: 45341-NCMUERQGY CONSULT <45MIN CHYNA PAREDES Dec 03, 2024 16:35
[2024-12-03] MEDS: MAGNESIUM SULFATE 1GM/100ML 100 ML IV ONE (17:37)
[2024-12-03] MEDS: ALBUMIN 5% 250 ML IV ONE (20:54)
--- NOTE | 2024-12-03 22:58 | DVHINCON2 ---
Date Seen: Dec 03, 2024 Referring Physician CINDY Sutton Reason for Consultation Hypotension History of Present Illness This is a 74-year-old female with a PMH of hypertension, buttock abscess status post I&D, tobacco use, and dementia. who presented to the ED with complaints of generalized weakness, chills, and cough for approximately one week. The patient reports that she was recently seen at [facility] where she was diagnosed with a abscess on her buttock and underwent an incision and drainage. She states that she was sent home on antibiotics. Cardiology has been consulted at this time for hypotension. Initial twelve lead electrocardiogram reveals normal sinus rhythm with PAC, prolonged QTC interval and artifact seen in multiple leads. 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 No troponin levels drawn at time of assessment. The patient denies any cardiac symptoms at time of assessment. Past Medical History Past medical history reviewed. No other significant than mentioned above. Past Surgical History Hysterectomy Corneal transplant Family History: FH: cancer G8 FATHER G8 SISTER FH: pancreatic cancer Allergies: Coded Allergies: Codeine (Verified Allergy, Unknown, 12/03/24) Statins (Verified Allergy, Unknown, 12/03/24) Current Medications Current Medications Medications (Trade) Dose Ordered Sig/Roberto Route PRN Reason Start Time Stop Time Status Last Admin Cefepime HCl 50 ml @ 12.5 mls/hr Q8HR IV 12/03/24 14:00 12/03/24 17:06 DC 12/03/24 14:18 Norepinephrine Bitartrate 250 ml @ 3.75 mls/hr Q24H IV 12/03/24 13:00 12/03/24 13:00 Vancomycin HCl 0 ml @ 0 mls/hr UD IV 12/03/24 13:15 Sodium Chloride 1,000 ml @ 60 mls/hr [id number] IV 12/03/24 13:15 12/03/24 14:19 Ondansetron HCl (Zofran) 4 mg Q4HP PRN IV NAUSEA / VOMITING 12/03/24 13:15 Docusate Sodium (Colace Capsule) 100 mg BIDPRN PRN PO FOR CONSTIPATION 12/03/24 13:15 Acetaminophen (Tylenol Tablet) 650 mg Q6HP PRN PO PAIN SCALE 1-3 OR TEMP>100.4 12/03/24 13:15 Nitroglycerin (Ntrostat Sublingual) 0.4 mg Q5MINP PRN SL FOR CHEST PAIN 12/03/24 13:15 12/03/24 14:11 DC Morphine Sulfate 2 mg Q30M PRN IV FOR CHEST PAIN 12/03/24 13:15 12/03/24 14:11 DC Morphine Sulfate 2 mg Q30M PRN IV FOR CHEST PAIN 12/03/24 14:15 Nitroglycerin (Ntrostat Sublingual) 0.4 mg Q5MINP PRN SL FOR CHEST PAIN 12/03/24 13:45 Cefepime HCl 50 ml @ 12.5 mls/hr DAILY IV 12/04/24 10:00 Review of Systems Constitutional: Generalized weakness, chills Ears, Nose, & Throat: No symptom reported Eyes: No symptom reported Neurological: No symptoms reported Pulmonary/Respiratory: Cough Cardiovascular: No symptom reported Gastrointestinal: No symptom reported Genitourinary: No symptom reported Musculoskeletal: No symptom reported Skin: No symptom reported Psychiatric: No symptom reported Endocrine: No symptom reported Hematologic/Lymphatic: No symptom reported Vital Signs Vital Signs Date Time Temp Pulse Resp B/P (MAP) Pulse Ox O2 Delivery O2 Flow Rate FiO2 12/03/24 22:00 76 15 113/50 (71) 96 12/03/24 22:00 98.4 98.4 12/03/24 20:00 Room Air* 0 21 Physical Exam GENERAL: Alert and oriented x 3. No acute distress. EYES: PERRL, EOMI. Anicteric. HENT: Moist mucous membranes. LUNGS: Clear to auscultation bilaterally. CARDIOVASCULAR: Regular rate and rhythm. ABDOMEN: Soft, non-tender and non-distended. EXTREMITIES: No edema. NEUROLOGIC: No focal neurological deficits. SKIN: Warm, dry. Labs/Diagnostic Data Labs Test 12/03/24 14:10 12/03/24 09:14 12/03/24 08:48 Range/Units POC Glucose 97 70-106 mg/dl White Blood Count 17.3 H 4.4-10.8 10^3/uL Red Blood Count 3.71 L 4.0-5.20 10^6/uL Hemoglobin 11.4 L 12.2-16.2 g/dL Hematocrit 33.6 L 36.0-46.0 % Mean Corpuscular Volume 90.6 80.0-100.0 fL Mean Corpuscular Hemoglobin 30.8 28.0-32.0 pg Mean Corpuscular Hemoglobin Concent 34.0 32.0-36.0 g/dL Red Cell Distribution Width 15.1 H 11.8-14.3 % Platelet Count 406 140-450 10^3/uL Mean Platelet Volume 6.9 6.9-10.8 fL Neutrophils (%) (Auto) 80.3 H 37.0-80.0 % Lymphocytes (%) (Auto) 10.3 10.0-50.0 % Monocytes (%) (Auto) 8.2 0.0-12.0 % Eosinophils (%) (Auto) 0.8 0.0-7.0 % Basophils (%) (Auto) 0.4 0.0-2.0 % Neutrophils # (Auto) 13.9 H 1.6-8.6 10 ^3/uL Lymphocytes # (Auto) 1.8 0.4-5.4 10 ^3/uL Monocytes # (Auto) 1.4 H 0-1.3 10 ^3/uL Eosinophils # (Auto) 0.1 0-0.8 10 ^3/uL Basophils # (Auto) 0.1 0-0.2 10 ^3/uL Nucleated Red Blood Cells 0.0 % Prothrombin Time 12.2 H 9.3-11.8 sec Prothrombin Time INR 1.17 H 0.9-1.15 Activated Partial Thromboplast Time 27.4 24.5-34.5 SEC Sodium Level 135 L 136-145 mmol/L Potassium Level 3.9 3.5-5.1 mmol/L Chloride Level 102 98-107 mmol/L Carbon Dioxide Level 26 20-31 mmol/L Anion Gap 7 5-15 Blood Urea Nitrogen 32 H 9-23 mg/dL Creatinine 1.78 H 0.550-1.02 mg/dL Glomerular Filtration Rate Calc 29 >90 mL/min BUN/Creatinine Ratio 18.0 10.0-20.0 Serum Glucose 137 H 74-106 mg/dL Hemoglobin A1c 5.5 <5.7 % A1C Lactic Acid Level 1.9 0.4-2.0 mmol/L Calcium Level 10.0 8.7-10.4 mg/dL Magnesium Level 1.7 1.6-2.6 mg/dL Total Bilirubin 0.3 0.2-1.0 mg/dL Aspartate Amino Transferase (AST) 16 13-40 U/L Alanine Aminotransferase (ALT) 12 7-40 U/L Alkaline Phosphatase 54 46-116 U/L Total Protein 6.2 5.7-8.2 g/dL Albumin 3.8 3.2-4.8 g/dL Triglycerides Level 115 < 150 mg/dL Cholesterol Level 129 < 200 mg/dL LDL Cholesterol 81 < 100 mg/dL HDL Cholesterol 31 L 40-59 mg/dL Thyroid Stimulating Hormone (TSH) 1.07 0.55-4.78 uIU/mL Urine Color Yellow Yellow Urine Clarity Clear Clear Urine pH 6.0 5.0-9.0 Urine Specific [employer] 1.012 1.001-1.035 Urine Protein Negative Negative Urine Ketones Negative Negative Urine Blood Negative Negative /uL Urine Nitrite Negative Negative Urine Bilirubin Negative Negative Urine Urobilinogen Normal Negative mg/dL Urine Leukocyte Esterase Negative Negative /uL Urine RBC 1 0 - 4 /hpf Urine Microscopic WBC 1 0-5 /HPF Urine Squamous Epithelial Cells Few <5 /hpf Urine Bacteria None seen None Seen /hpf Urine Yeast (Budding) Occasional None Seen /hpf Urine Glucose Normal Normal mg/dL Assessment Hypotension in the setting of severe sepsis. Rule out structural heart disease. Prolonged QTc interval. History of hypertension. Right perianal soft tissue emphysema. Acute kidney injury. Dementia. History of tobacco use. Plan/Recommendation I agree with your ongoing assessment and care of plan. Patient has been seen by Jaz Mejia NP on my behalf. We have discussed the plan with the patient. We will proceed with obtaining a transthoracic echocardiogram to evaluate cardiac function. At the time of assessment, the patient is now off of vasopressor therapy. Hypotension likely in the setting of sepsis. Patient also admits to taking her antihypertensive medications atenolol and lisinopril this morning prior to emergency room arrival. Hold antihypertensives until blood pressure stable. Avoid medications that will further prolong QT interval as this places the patient at risk for torsades de pointes. Monitor and replete electrolytes as needed. Antibiotics per primary care team. Consider GI consult for abdomen and pelvis CT findings. In the setting of an unremarkable transthoracic echocardiogram, there is no further inpatient cardiac workup indicated at this time. Additional plan as per the hospital course. Plan discussed with: Patient NYHA Physical activity limitations: NA Date of Service: Dec 03, 2024 Billing Provider: ALBERTO SERRATO MD Cardiology Common Codes: 35596-NTTFBRS INP/OBS CARE (High) Cardiology Consultation Codes: [id number] CONSULT <45MIN ALBERTO SERRATO MD Dec 03, 2024 22:58
[2024-12-04] VITALS (33 sets, daily range): BP systolic 91–138; BP diastolic 37–80; PULSE 45–90; RESP 12–22; TEMP 97.3–98.5; O2SAT 90–98
[2024-12-04 04:04] LABS: Hematocrit 31.9 % (36.0-46.0); Hemoglobin 10.7 g/dL (12.2-16.2); Mean Corpuscular Hemoglobin 30.6 pg (28.0-32.0); Mean Corpuscular Volume 91.0 fL (80.0-100.0); Nucleated Red Blood Cells % 0.1 %
[2024-12-04 04:43] LABS: Alanine Aminotransferase 11 U/L (7-40); Albumin 3.3 g/dL (3.2-4.8); Alkaline Phosphatase 47 U/L (46-116); Anion Gap 7 (5-15); BUN/Creatinine Ratio 24.1 (10.0-20.0); Bilirubin, Total 0.4 mg/dL (0.2-1.0); Blood Urea Nitrogen 21 mg/dL (9-23); Calcium 9.0 mg/dL (8.7-10.4); Carbon Dioxide 27 mmol/L (20-31); Chloride 106 mmol/L (98-107); Glucose 95 mg/dL (74-106); Potassium 4.0 mmol/L (3.5-5.1); Sodium 140 mmol/L (136-145)
[2024-12-04 04:49] LABS: Total Protein 5.1 g/dL (5.7-8.2)
[2024-12-04] MEDS: CEFEPIME 1GM/ 50ML 50 ML IV SCH (10:22)
--- NOTE | 2024-12-04 10:36 | DVHCONRES ---
Date Seen: Dec 04, 2024 Resident Creating Document: MIGUEL ANGEL CESAR RESIDENT Referring Physician TYREE WHITE History of Present Illness This is a 74-year-old female patient with hypertension who presented to the ER with a chief complaint of generalized weakness, chills and a buttock abscess. Patient was recently seen at [facility] and was diagnosed with hip abscess, underwent possible I and D and was discharged on antibiotics. She reports chills, generalized weakness, patient was not eating and drinking well. On arrival to the ER, patient was afebrile, pulse 50-60 beats per minute, patient was tachypneic and blood pressure was 70/40 mmHg. Patient received LR 30 mL/kg bolus. Blood pressure did not improve and patient was started on Levophed. Nephrology consulted for acute kidney injury Patient seen and examined in ER. Undergoing echocardiogram. BUN/creatinine trended down to baseline after IV resuscitation. Patient is off pressors. Family History: FH: cancer G8 FATHER G8 SISTER FH: pancreatic cancer Allergies: Coded Allergies: Codeine (Verified Allergy, Unknown, 12/03/24) Statins (Verified Allergy, Unknown, 12/03/24) Current Medications Current Medications Medications (Trade) Dose Ordered Sig/Roberto Route PRN Reason Start Time Stop Time Status Last Admin Cefepime HCl 50 ml @ 12.5 mls/hr Q8HR IV 12/03/24 14:00 12/03/24 17:06 DC 12/03/24 14:18 Norepinephrine Bitartrate 250 ml @ 3.75 mls/hr Q24H IV 12/03/24 13:00 12/03/24 13:00 Vancomycin HCl 0 ml @ 0 mls/hr UD IV 12/03/24 13:15 Sodium Chloride 1,000 ml @ 60 mls/hr [id number] IV 12/03/24 13:15 12/04/24 04:34 Ondansetron HCl (Zofran) 4 mg Q4HP PRN IV NAUSEA / VOMITING 12/03/24 13:15 Docusate Sodium (Colace Capsule) 100 mg BIDPRN PRN PO FOR CONSTIPATION 12/03/24 13:15 Acetaminophen (Tylenol Tablet) 650 mg Q6HP PRN PO PAIN SCALE 1-3 OR TEMP>100.4 12/03/24 13:15 Nitroglycerin (Ntrostat Sublingual) 0.4 mg Q5MINP PRN SL FOR CHEST PAIN 12/03/24 13:15 12/03/24 14:11 DC Morphine Sulfate 2 mg Q30M PRN IV FOR CHEST PAIN 12/03/24 13:15 12/03/24 14:11 DC Morphine Sulfate 2 mg Q30M PRN IV FOR CHEST PAIN 12/03/24 14:15 Nitroglycerin (Ntrostat Sublingual) 0.4 mg Q5MINP PRN SL FOR CHEST PAIN 12/03/24 13:45 Cefepime HCl 50 ml @ 12.5 mls/hr DAILY IV 12/04/24 10:00 12/04/24 10:22 Vital Signs Vital Signs Date Time Temp Pulse Resp B/P (MAP) Pulse Ox O2 Delivery O2 Flow Rate FiO2 12/04/24 09:06 58 12/04/24 08:00 98.1 18 101/43 (62) 97 98.1 12/04/24 07:45 Room Air* 0 21 Physical Exam Patient lying in bed, in no acute distress General: Well-built, afebrile, palor, mucosae are moist Cardiovascular: Regular S1 and S2. No murmurs, gallops or rubs. No JVD elevation. No pedal edema Respiratory: Normal B/L air entry on room air. Clear lung sounds on auscultation Abdomen: Soft, nontender, nondistended, normoactive bowel sounds, no rebound ten derness, no organomegaly, no masses Genitourinary: Deferred MSK/skin: Mobilizes 4 limbs. Skin is dry and warm Neurological: No motor, no sensitive deficits, normal speech. Pupils are isocoric and reactive. Psych/Mental Status: A/Ox3 Labs/Diagnostic Data Labs Test 12/04/24 03:24 12/03/24 14:10 12/03/24 09:14 12/03/24 08:48 Range/Units White Blood Count 14.2 H 4.4-10.8 10^3/uL Red Blood Count 3.51 L 4.0-5.20 10^6/uL Hemoglobin 10.7 L 12.2-16.2 g/dL Hematocrit 31.9 L 36.0-46.0 % Mean Corpuscular Volume 91.0 80.0-100.0 fL Mean Corpuscular Hemoglobin 30.6 28.0-32.0 pg Mean Corpuscular Hemoglobin Concent 33.7 32.0-36.0 g/dL Red Cell Distribution Width 14.8 H 11.8-14.3 % Platelet Count 374 140-450 10^3/uL Mean Platelet Volume 7.1 6.9-10.8 fL Neutrophils (%) (Auto) 71.3 37.0-80.0 % Lymphocytes (%) (Auto) 17.5 10.0-50.0 % Monocytes (%) (Auto) 9.0 0.0-12.0 % Eosinophils (%) (Auto) 1.5 0.0-7.0 % Basophils (%) (Auto) 0.7 0.0-2.0 % Neutrophils # (Auto) 10.1 H 1.6-8.6 10 ^3/uL Lymphocytes # (Auto) 2.5 0.4-5.4 10 ^3/uL Monocytes # (Auto) 1.3 0-1.3 10 ^3/uL Eosinophils # (Auto) 0.2 0-0.8 10 ^3/uL Basophils # (Auto) 0.1 0-0.2 10 ^3/uL Nucleated Red Blood Cells 0.1 % Sodium Level 140 # 136-145 mmol/L Potassium Level 4.0 3.5-5.1 mmol/L Chloride Level 106 98-107 mmol/L Carbon Dioxide Level 27 20-31 mmol/L Anion Gap 7 5-15 Blood Urea Nitrogen 21 # 9-23 mg/dL Creatinine 0.87 # 0.550-1.02 mg/dL Glomerular Filtration Rate Calc 69 >90 mL/min BUN/Creatinine Ratio 24.1 H 10.0-20.0 Serum Glucose 95 74-106 mg/dL Calcium Level 9.0 8.7-10.4 mg/dL Total Bilirubin 0.4 0.2-1.0 mg/dL Aspartate Amino Transferase (AST) 14 13-40 U/L Alanine Aminotransferase (ALT) 11 7-40 U/L Alkaline Phosphatase 47 46-116 U/L Total Protein 5.1 L 5.7-8.2 g/dL Albumin 3.3 3.2-4.8 g/dL Random Vancomycin Level 7.2 5-10 ug/mL POC Glucose 97 70-106 mg/dl Prothrombin Time 12.2 H 9.3-11.8 sec Prothrombin Time INR 1.17 H 0.9-1.15 Activated Partial Thromboplast Time 27.4 24.5-34.5 SEC Hemoglobin A1c 5.5 <5.7 % A1C Lactic Acid Level 1.9 0.4-2.0 mmol/L Magnesium Level 1.7 1.6-2.6 mg/dL Triglycerides Level 115 < 150 mg/dL Cholesterol Level 129 < 200 mg/dL LDL Cholesterol 81 < 100 mg/dL HDL Cholesterol 31 L 40-59 mg/dL Thyroid Stimulating Hormone (TSH) 1.07 0.55-4.78 uIU/mL Urine Color Yellow Yellow Urine Clarity Clear Clear Urine pH 6.0 5.0-9.0 Urine Specific [place] 1.012 1.001-1.035 Urine Protein Negative Negative Urine Ketones Negative Negative Urine Blood Negative Negative /uL Urine Nitrite Negative Negative Urine Bilirubin Negative Negative Urine Urobilinogen Normal Negative mg/dL Urine Leukocyte Esterase Negative Negative /uL Urine RBC 1 0 - 4 /hpf Urine Microscopic WBC 1 0-5 /HPF Urine Squamous Epithelial Cells Few <5 /hpf Urine Bacteria None seen None Seen /hpf Urine Yeast (Budding) Occasional None Seen /hpf Urine Glucose Normal Normal mg/dL Microbiology Date/Time Source Procedure Growth Status 12/03/24 09:14 Blood Blood Culture - Preliminary NO GROWTH AFTER 24 HOURS OF INCUBATION. Resulted Assessment Acute kidney injury likely prerenal in the setting of sepsis Hypotension ? Septic shock Right perianal soft tissue emphysema History of hypertension Prolonged QTC interval Anemia, likely normocytic Sinus bradycardia Plan: Given the downtrending BUN/creatinine, improving GFR, we recommend continuing IV fluids at this time. Increased NS to 100 cc/hour. We will monitor vanco trough Avoid NSAIDs Continue strict I&Os Patient is off pressors Continue NS 60 mL/hour Follow up with cultures Antibiotics per primary team We will continue to monitor the patient Plan discussed with patient in which all questions have been answered Case discussed with Dr. Cowan Plan discussed with: Patient MIGUEL ANGEL CESAR RESIDENT Dec 04, 2024 10:36
--- NOTE | 2024-12-04 11:06 | DVHPN2 ---
Subjective Complains of abdominal pain. Reviewed: Care Plan, H&P, Labs, Medications Changes from previous H/P or p: No Changes Eyes: No Pain, No Vision change, No Conjunctivae inflammation, No Eyelid inflammation, No Other, No Redness ENT: No Ear pain, No Ear discharge, No Nose pain, No Nose discharge, No Nose congestion, No Mouth pain, No Mouth swelling, No Throat pain, No Throat swelling, No Other Cardiovascular: No Chest Pain, No Palpitations, No Orthopnea, No Paroxysmal Noc. Dyspnea, No Edema, No Lt Headedness; Other (Hypotension) Respiratory: Cough; No Dry, No Shortness of breath, No SOB with excertion, No Wheezing, No Hemoptysis, No Pleuritic Pain, No Sputum, No Other Gastrointestinal: No Nausea, No Vomiting, No Abdominal Pain, No Diarrhea, No Constipation, No Melena, No Hematochezia, No Other Genitourinary: No Dysuria, No Frequency, No Incontinence, No Hematuria, No Retention, No Other Musculoskeletal: No other, No neck pain, No shoulder pain, No arm pain, No back pain, No hand pain, No leg pain, No foot pain Skin: No Rash, No Lesions, No Jaundice, No Bruising; Other (Sacrum has a 1 in incisional wound no discharge, mild redness surrounding it.) Objective Vitals Vital Signs Date Time Temp Pulse Resp B/P (MAP) Pulse Ox O2 Delivery O2 Flow Rate FiO2 12/04/24 10:00 71 18 92/56 (68) 98 12/04/24 08:00 98.1 98.1 12/04/24 07:45 Room Air* 0 21 Intake/Output Intake and Output 12/04/24 06:59 Intake Total 3340 ml Output Total 3900 ml Balance -560 ml Intake Oral 500 ml IV Total 2840 ml Output Urine Total 3900 ml # Bowel Movements 4 General Appearance: Alert, Oriented X3, Cooperative, mild distress HEENT: Atraumatic, PERRLA Lungs: Clear to auscultation, Normal air movement Cardiovascular: Normal S1, Normal S2 Abdomen: Normal bowel sounds, Soft, Other (Tenderness to suprapubic pain) Genitourinary: No Apparent Abnormalities, Bladder Flat Musculoskeletal: Normal sensory function, Normal motor function Neuro: Sensation intact, Cranial nerves 3-12 NL Skin: Dry, Intact, Wounds (See nurse notes and pictures) Psych/Mental Status: Mental status NL, Mood NL Medications Current Medications Medications Dose Ordered Sig/Roberto Route Start Time Stop Time Status Last Admin Dose Admin Vancomycin HCl 0 ml @ 0 mls/hr UD IV 12/03/24 13:15 Ondansetron HCl 4 mg Q4HP PRN IV 12/03/24 13:15 Docusate Sodium 100 mg BIDPRN PRN PO 12/03/24 13:15 Acetaminophen 650 mg Q6HP PRN PO 12/03/24 13:15 Morphine Sulfate 2 mg Q30M PRN IV 12/03/24 14:15 Nitroglycerin 0.4 mg Q5MINP PRN SL 12/03/24 13:45 Cefepime HCl 50 ml @ 12.5 mls/hr DAILY IV 12/04/24 10:00 12/04/24 10:22 12.5 MLS/HR Sodium Chloride 1,000 ml @ 100 mls/hr Q10H IV 12/04/24 10:45 UNV Laboratory Results Laboratory Tests 12/04/24 03:24 Chemistry Test 12/04/24 03:24 Albumin 3.3 g/dL (3.2-4.8) Calcium Level 9.0 mg/dL (8.7-10.4) Total Protein 5.1 g/dL (5.7-8.2) L LFT Test 12/04/24 03:24 Alanine Aminotransferase (ALT) 11 U/L (7-40) Alkaline Phosphatase 47 U/L (46-116) Aspartate Amino Transferase (AST) 14 U/L (13-40) Total Bilirubin 0.4 mg/dL (0.2-1.0) Urinalysis Test 12/03/24 08:48 Urine Color Yellow (Yellow) Urine Clarity Clear (Clear) Urine pH 6.0 (5.0-9.0) Urine Specific [place] 1.012 (1.001-1.035) Urine Protein Negative (Negative) Urine Ketones Negative (Negative) Urine Blood Negative /uL (Negative) Urine Nitrite Negative (Negative) Urine Bilirubin Negative (Negative) Urine Urobilinogen Normal mg/dL (Negative) Urine Leukocyte Esterase Negative /uL (Negative) Urine RBC 1 /hpf (0 - 4) Urine Microscopic WBC 1 /HPF (0-5) Urine Squamous Epithelial Cells Few /hpf (<5) Urine Bacteria None seen /hpf (None Seen) Urine Yeast (Budding) Occasional /hpf (None Urine Glucose Normal mg/dL (Normal) Microbiology Microbiology Date/Time Source Procedure Growth Status 12/03/24 09:14 Blood Blood Culture - Preliminary NO GROWTH AFTER 24 HOURS OF INCUBATION. Resulted Assessment/Plan Assessment/Plan Impression: -Sepsis due to Acute Diverticulitis -septic shock -? Proctocolitis -recent gluteal abscess I&D -severe deconditioning with bed-bound status at this time -primary hypertension Plan: -patient weaned off norepinephrine drip. Patient had volume resuscitation with improvement of patient's blood pressure. -continue vancomycin and cefepime. Add Flagyl given noted acute diverticulitis on CT scan -wound culture -hold antihypertensives at this time -PPI -GI consultation -check CEA -transfer to Medical/Surgical unit -plan of care discussed with the patient's son Kenyon via telephone. All questions answered. Total time spent with patient discussing and formulating plan of care: 35 minutes. Total time spent with patient and family regarding advance care plannin minutes. This medical document was created using an electronic medical record system with [employer] dictation system. Although this document has been carefully reviewed, there may still be some phonetic and typographical errors. These areas are purely typographical due to imperfections of the software programs, and do not reflect any compromise in the patient's medical care. Plan discussed with: Patient, Son, Other (RN) My Orders Orders - RESHMA GUNDRESON NP Procedure Category Date Status Time Sodium Chloride 0.9% PHA 12/04/24 Logged 10:45 Transfer Orders XFER 12/04/24 Transmitted 10:38 Basic Metabolic Panel LAB 12/05/24 Verified 05:00 Basic Metabolic Panel LAB 12/06/24 Verified 05:00 Basic Metabolic Panel LAB 12/07/24 Verified 05:00 Complete Blood Count LAB 12/05/24 Verified 05:00 Complete Blood Count LAB 12/06/24 Verified 05:00 Complete Blood Count LAB 12/07/24 Verified 05:00 Wound Culture W/ Gs LETTY 12/04/24 Logged 10:38 Clear Liq Diet DIET 12/04/24 Transmitted Lunch Carcinoembryonic LAB 12/04/24 In Process Antigen 10:49 Metronidazole PHA 12/04/24 Logged 500mg/100ml (Flagyl 14:00 Date of Service: Dec 04, 2024 Billing Provider: RESHMA GUNDERSON NP Common Visit Codes: [id number] INP/OBS CARE(HIGH) Secondary Visit Codes: [id number] CARE PLAN 30 MINUTES RESHMA GUNDERSON NP Dec 04, 2024 11:06
[2024-12-04] MEDS: SODIUM CHLORIDE 0.9% 1,000 ML IV SCH (11:13)
--- NOTE | 2024-12-04 13:05 | DVHINCON2 ---
GI Consult Consult Note GI consult note Date of Consultation: 12/04/2024 Chief Complaint: Acute diverticulitis Referring Physician: Ely H&P: 74-year-old female presented to ER with complains of generalized weakness. Patient was hospitalized at [facility] for abscess removal in the buttocks area. No complains of abdominal pain. Denies nausea or vomiting. Patient having loose stool at this time. Denies melena or red blood in stool. No colonoscopy in past Past Medical History: Sacral abscess Past Surgical History: Appendectomy, abscess removal in sacral area Social History: NO smoking, drinking ETOH and use of illegal drugs. Family History: Noncontributory Review of Systems: Constitutional: no fever, chill, weight loss HEENT: no eye pain, no hearing loss, no oral lesion, no scleral icterus Heart: no chest pain, no chest pressure Lung: no cough, no dyspnea with exertion Abdomen: see HPI Physical exam: General: NAD, AAOX3 Chest: lung santiago clear to auscultation Heart: RRR, no murmur Abdomen: non-distended, no tenderness to palpation, +BS Labs: Labs Test 12/04/24 03:24 12/03/24 14:10 12/03/24 09:14 12/03/24 08:48 Range/Units White Blood Count 14.2 H 4.4-10.8 10^3/uL Red Blood Count 3.51 L 4.0-5.20 10^6/uL Hemoglobin 10.7 L 12.2-16.2 g/dL Hematocrit 31.9 L 36.0-46.0 % Mean Corpuscular Volume 91.0 80.0-100.0 fL Mean Corpuscular Hemoglobin 30.6 28.0-32.0 pg Mean Corpuscular Hemoglobin Concent 33.7 32.0-36.0 g/dL Red Cell Distribution Width 14.8 H 11.8-14.3 % Platelet Count 374 140-450 10^3/uL Mean Platelet Volume 7.1 6.9-10.8 fL Neutrophils (%) (Auto) 71.3 37.0-80.0 % Lymphocytes (%) (Auto) 17.5 10.0-50.0 % Monocytes (%) (Auto) 9.0 0.0-12.0 % Eosinophils (%) (Auto) 1.5 0.0-7.0 % Basophils (%) (Auto) 0.7 0.0-2.0 % Neutrophils # (Auto) 10.1 H 1.6-8.6 10 ^3/uL Lymphocytes # (Auto) 2.5 0.4-5.4 10 ^3/uL Monocytes # (Auto) 1.3 0-1.3 10 ^3/uL Eosinophils # (Auto) 0.2 0-0.8 10 ^3/uL Basophils # (Auto) 0.1 0-0.2 10 ^3/uL Nucleated Red Blood Cells 0.1 % Sodium Level 140 # 136-145 mmol/L Potassium Level 4.0 3.5-5.1 mmol/L Chloride Level 106 98-107 mmol/L Carbon Dioxide Level 27 20-31 mmol/L Anion Gap 7 5-15 Blood Urea Nitrogen 21 # 9-23 mg/dL Creatinine 0.87 # 0.550-1.02 mg/dL Glomerular Filtration Rate Calc 69 >90 mL/min BUN/Creatinine Ratio 24.1 H 10.0-20.0 Serum Glucose 95 74-106 mg/dL Calcium Level 9.0 8.7-10.4 mg/dL Total Bilirubin 0.4 0.2-1.0 mg/dL Aspartate Amino Transferase (AST) 14 13-40 U/L Alanine Aminotransferase (ALT) 11 7-40 U/L Alkaline Phosphatase 47 46-116 U/L Total Protein 5.1 L 5.7-8.2 g/dL Albumin 3.3 3.2-4.8 g/dL Carcinoembryonic Antigen 1.20 <=5.0 ng/mL Random Vancomycin Level 7.2 5-10 ug/mL POC Glucose 97 70-106 mg/dl Prothrombin Time 12.2 H 9.3-11.8 sec Prothrombin Time INR 1.17 H 0.9-1.15 Activated Partial Thromboplast Time 27.4 24.5-34.5 SEC Hemoglobin A1c 5.5 <5.7 % A1C Lactic Acid Level 1.9 0.4-2.0 mmol/L Magnesium Level 1.7 1.6-2.6 mg/dL Triglycerides Level 115 < 150 mg/dL Cholesterol Level 129 < 200 mg/dL LDL Cholesterol 81 < 100 mg/dL HDL Cholesterol 31 L 40-59 mg/dL Thyroid Stimulating Hormone (TSH) 1.07 0.55-4.78 uIU/mL Urine Color Yellow Yellow Urine Clarity Clear Clear Urine pH 6.0 5.0-9.0 Urine Specific [place] 1.012 1.001-1.035 Urine Protein Negative Negative Urine Ketones Negative Negative Urine Blood Negative Negative /uL Urine Nitrite Negative Negative Urine Bilirubin Negative Negative Urine Urobilinogen Normal Negative mg/dL Urine Leukocyte Esterase Negative Negative /uL Urine RBC 1 0 - 4 /hpf Urine Microscopic WBC 1 0-5 /HPF Urine Squamous Epithelial Cells Few <5 /hpf Urine Bacteria None seen None Seen /hpf Urine Yeast (Budding) Occasional None Seen /hpf Urine Glucose Normal Normal mg/dL Microbiology Date/Time Source Procedure Growth Status 12/03/24 09:14 Blood Blood Culture - Preliminary NO GROWTH AFTER 24 HOURS OF INCUBATION. Resulted Imaging: CT abdomen pelvis IMPRESSION: Right perianal region/right medial soft tissue stranding and soft tissue emphysema which could be secondary to infectious, inflammatory etiologies. There is associated rectal/anal wall thickening, possibly secondary to proctocolitis. Recommend GI consultation to exclude any type of underlying rectal/ anal mass/lesion. Large volume stool within the colon. Colonic diverticular disease. Sigmoid wall thickening with surrounding stranding may represent diverticulitis. Recommend GI consultation for colonoscopy once acute symptoms resolve to exclude underlying sigmoid colon lesion. Tiny bilateral pleural effusions. Atherosclerotic, coronary artery calcification disease. Indeterminate left hepatic lobe hypodense lesion measuring 7 mm. Further evaluation with a multiphasic MRI abdomen with and without contrast can be obtained to evaluate. Other findings as described Assessment: Diverticulitis Abscess right perianal area with associated proctocolitis Plan: -discussed with Dr. Guadarrama IV antibiotics Clear liquid diet Monitor labs We will continue to monitor patient Possible plan for outpatient elective colonoscopy when symptoms improve Discussed plan with patient, and dwain WHITE Thank you for this consult Date of Service: Dec 04, 2024 Billing Provider: KATIANA LOAIZA Common Visit Codes: CONSULT ONLY Consultation Codes: [id number] CONSULT <60MIN KATIANA LOAIZA Dec 04, 2024 13:05
[2024-12-04] MEDS: VANCOMYCIN 750mg/150ml 150 ML IV SCH (16:30)
--- NOTE | 2024-12-04 23:42 | DVHPN2 ---
Progress Note - Dictate Date Seen: Dec 04, 2024 Medical Necessity Reason Pt with a Central, PICC or Fol: No Subjective Patient was seen and evaluated in follow up. Patient is complaining of abdominal pain. WBC 14.2.TSH is WNL at 1.07. Prelim blood cultures are negative. Echocardiogram is ordered/pending. Telemetry reviewed. vital signs Vital Sign Date Time Temp Pulse Resp B/P (MAP) Pulse Ox O2 Delivery O2 Flow Rate FiO2 12/04/24 21:00 97.3 81 18 133/73 (93) 96 97.3 12/04/24 20:00 Room Air* 0 21 Total Intake and Output 12/03/24 12/03/24 12/04/24 15:00 23:00 07:00 Intake Total 1750 ml 870 ml 720 ml Output Total 1900 ml 2000 ml Balance 1750 ml -1030 ml -1280 ml medications Current Medications Medications Dose Ordered Sig/Roberto Route Start Time Stop Time Status Last Admin Dose Admin Vancomycin HCl 0 ml @ 0 mls/hr UD IV 12/03/24 13:15 Ondansetron HCl 4 mg Q4HP PRN IV 12/03/24 13:15 Docusate Sodium 100 mg BIDPRN PRN PO 12/03/24 13:15 Acetaminophen 650 mg Q6HP PRN PO 12/03/24 13:15 Morphine Sulfate 2 mg Q30M PRN IV 12/03/24 14:15 Nitroglycerin 0.4 mg Q5MINP PRN SL 12/03/24 13:45 Cefepime HCl 50 ml @ 12.5 mls/hr DAILY IV 12/04/24 10:00 12/04/24 10:22 12.5 MLS/HR Sodium Chloride 1,000 ml @ 100 mls/hr Q10H IV 12/04/24 10:45 12/04/24 11:13 100 MLS/HR Metronidazole 100 ml @ 100 mls/hr Q8HR IV 12/04/24 14:00 12/04/24 21:19 100 MLS/HR Vancomycin HCl 150 ml @ 150 mls/hr Q12H IV 12/04/24 15:00 12/04/24 16:30 150 MLS/HR objective GENERAL: Alert and oriented x 3. No acute distress. EYES: PERRL, EOMI. Anicteric. HENT: Moist mucous membranes. LUNGS: Clear to auscultation bilaterally. CARDIOVASCULAR: Regular rate and rhythm. ABDOMEN: Soft, non-tender and non-distended. EXTREMITIES: No edema. NEUROLOGIC: No focal neurological deficits. SKIN: Warm, dry. laboratory and microbiology Laboratory Tests 12/04/24 03:24 Test 12/04/24 03:24 Range/Units Serum Glucose 95 74-106 mg/dL Problem List Hypotension in the setting of severe sepsis. Prolonged QTc interval. History of hypertension. Right perianal soft tissue emphysema. Acute kidney injury. Dementia. History of tobacco use. Assessment/Plan Continued all current supportive medical care. IV antibiotics as ordered. Morphine for pain management. Zofran. IVFs. Additional plan as per the hospital course. Plan discussed with: Patient Is the fluid challenge complet: Yes Date of Reassessment: Dec 03, 2024 Time of Reassessment: 1100 Blood Culture Time: 913 Time Antibiotics Given: 928 Systolic BP: 119 Diastolic BP: 47 Blood Pressure Mean: 71 Respiration: 16 Respiratory Effort: Non-Labored Respiratory Pattern: Regular Oxygen Saturation: 96 Pulse Rate: 79 Pulse Location: Apical Pulse Strength: Normal Pulse Assessment Method: Auscultation Pulse Rhythm: Regular Capillary Refill: < 3 seconds Heart Sounds: S1 & S2 Breath sounds: Clear Skin Moisture: Dry Skin Tugor: WNL Skin Color: WNL ALBERTO SERRATO MD Dec 04, 2024 23:42
[2024-12-05] VITALS (7 sets, daily range): BP systolic 119–143; BP diastolic 60–80; PULSE 65–86; RESP 16–19; TEMP 97.9–98.5; O2SAT 93–97
--- NOTE | 2024-12-05 00:53 | DVHSR ---
APPROVED REPORT EXAM: Two-dimensional and M-mode echocardiogram with Doppler and color Doppler. Blood Pressure: 111/41 mmHg INDICATION Evaluate cardiac function RISK FACTORS Height: 63, Weight: 152 DIMENSIONS LVDd4.4 (3.8-5.7cm)LA (2D) (1.9-4.0cm)Aortic Root3.6 (2.0-3.7cm) LVDs3.0 (2.5-4.0cm)LA (MM) (1.9-4.0cm)Aortic Cusp Exc1.3 (1.5-2.0cm) EF (%) 61.0 (55-70%)Rt. Atrium (1.9-4.0cm)Asc. Aorta cm IVSd1.1 (0.7-1.1cm)RV (D) (1.8-2.4cm) PWd0.9 (0.7-1.1cm) Mitral Valve MitralMitral Stenosis E wave0.79m/sMV Mean GR.mmHg A wave0.97m/sMV Peak GR.mmHg E/A ratio0.82D MVAcm2 DECEL [id number] 1/2 [id number] IVRTmsDop MVA2.79cm2 Aortic Valve Aortic ValveAortic Stenosis V11.25m/Dorita Mean GR.7mmHg V22.02m/Dorita Peak GR.16mmHg LVOT Diameter1.8 (1.8-2.4cm)Doppler AVA1.57cm2 Pulmonic Valve V21.08m/s Tricuspid Valve TR Velocity2.52m/s [id number] Other Information Technically limited study due to body habitus and patient position. Conclusion NORMAL LV EF AND IS 65% NORMAL VALVES NORMAL RV FUNCTION AND SIZE NO EFFUSION
[2024-12-05 06:57] LABS: Hematocrit 30.8 % (36.0-46.0); Hemoglobin 10.6 g/dL (12.2-16.2); Mean Corpuscular Hemoglobin 31.3 pg (28.0-32.0); Mean Corpuscular Volume 91.2 fL (80.0-100.0); Nucleated Red Blood Cells % 0.0 %
[2024-12-05 07:03] LABS: Potassium 3.5 mmol/L (3.5-5.1); Sodium 141 mmol/L (136-145)
[2024-12-05 07:04] LABS: Anion Gap 10 (5-15); Calcium 9.5 mg/dL (8.7-10.4); Carbon Dioxide 23 mmol/L (20-31)
[2024-12-05 07:05] LABS: Chloride 108 mmol/L (98-107)
[2024-12-05 07:09] LABS: BUN/Creatinine Ratio 20.3 (10.0-20.0); Blood Urea Nitrogen 12 mg/dL (9-23); Glucose 83 mg/dL (74-106)
[2024-12-05] MEDS: POTASSIUM EFFERVESENT TAB 25 MEQ PO ONE (09:30)
[2024-12-05] MEDS ORDERED: SODIUM CHLORIDE 0.9% 1,000 ML IV SCH (11:15)
--- NOTE | 2024-12-05 11:15 | DVHPN2 ---
Subjective Denies any abdominal pain at this time. Reviewed: Care Plan, H&P, Labs, Medications Changes from previous H/P or p: No Changes Eyes: No Pain, No Vision change, No Conjunctivae inflammation, No Eyelid inflammation, No Other, No Redness ENT: No Ear pain, No Ear discharge, No Nose pain, No Nose discharge, No Nose congestion, No Mouth pain, No Mouth swelling, No Throat pain, No Throat swelling, No Other Cardiovascular: No Chest Pain, No Palpitations, No Orthopnea, No Paroxysmal Noc. Dyspnea, No Edema, No Lt Headedness; Other (Hypotension) Respiratory: Cough; No Dry, No Shortness of breath, No SOB with excertion, No Wheezing, No Hemoptysis, No Pleuritic Pain, No Sputum, No Other Gastrointestinal: No Nausea, No Vomiting, No Abdominal Pain, No Diarrhea, No Constipation, No Melena, No Hematochezia, No Other Genitourinary: No Dysuria, No Frequency, No Incontinence, No Hematuria, No Retention, No Other Musculoskeletal: No other, No neck pain, No shoulder pain, No arm pain, No back pain, No hand pain, No leg pain, No foot pain Skin: No Rash, No Lesions, No Jaundice, No Bruising; Other (Sacrum has a 1 in incisional wound no discharge, mild redness surrounding it.) Objective Vitals Vital Signs Date Time Temp Pulse Resp B/P (MAP) Pulse Ox O2 Delivery O2 Flow Rate FiO2 12/05/24 08:56 98.5 70 18 143/60 (87) 97 98.5 12/05/24 08:05 Room Air* 0 21 Intake/Output Intake and Output 12/05/24 07:00 Intake Total 2200 ml Output Total 1500 ml Balance 700 ml Intake Oral 500 ml IV Total 500 ml Other 1200 ml Output Urine Total 1500 ml # Bowel Movements 2 General Appearance: Alert, Oriented X3, Cooperative, mild distress HEENT: Atraumatic, PERRLA Lungs: Clear to auscultation, Normal air movement Cardiovascular: Normal S1, Normal S2 Abdomen: Normal bowel sounds, Soft, Other (Tenderness to suprapubic pain) Genitourinary: No Apparent Abnormalities, Bladder Flat Musculoskeletal: Normal sensory function, Normal motor function Neuro: Sensation intact, Cranial nerves 3-12 NL Skin: Dry, Intact, Wounds (See nurse notes and pictures) Psych/Mental Status: Mental status NL, Mood NL Medications Current Medications Medications Dose Ordered Sig/Roberto Route Start Time Stop Time Status Last Admin Dose Admin Vancomycin HCl 0 ml @ 0 mls/hr UD IV 12/03/24 13:15 Ondansetron HCl 4 mg Q4HP PRN IV 12/03/24 13:15 Docusate Sodium 100 mg BIDPRN PRN PO 12/03/24 13:15 Acetaminophen 650 mg Q6HP PRN PO 12/03/24 13:15 Morphine Sulfate 2 mg Q30M PRN IV 12/03/24 14:15 Nitroglycerin 0.4 mg Q5MINP PRN SL 12/03/24 13:45 Cefepime HCl 50 ml @ 12.5 mls/hr DAILY IV 12/04/24 10:00 12/05/24 09:09 12.5 MLS/HR Sodium Chloride 1,000 ml @ 100 mls/hr Q10H IV 12/04/24 10:45 12/05/24 00:47 100 MLS/HR Metronidazole 100 ml @ 100 mls/hr Q8HR IV 12/04/24 14:00 12/05/24 05:56 100 MLS/HR Vancomycin HCl 150 ml @ 150 mls/hr Q12H IV 12/04/24 15:00 12/05/24 03:31 150 MLS/HR Laboratory Results Laboratory Tests 12/05/24 06:05 Chemistry Test 12/05/24 06:05 Calcium Level 9.5 mg/dL (8.7-10.4) Urinalysis Test 12/03/24 08:48 Urine Color Yellow (Yellow) Urine Clarity Clear (Clear) Urine pH 6.0 (5.0-9.0) Urine Specific [place] 1.012 (1.001-1.035) Urine Protein Negative (Negative) Urine Ketones Negative (Negative) Urine Blood Negative /uL (Negative) Urine Nitrite Negative (Negative) Urine Bilirubin Negative (Negative) Urine Urobilinogen Normal mg/dL (Negative) Urine Leukocyte Esterase Negative /uL (Negative) Urine RBC 1 /hpf (0 - 4) Urine Microscopic WBC 1 /HPF (0-5) Urine Squamous Epithelial Cells Few /hpf (<5) Urine Bacteria None seen /hpf (None Seen) Urine Yeast (Budding) Occasional /hpf (None Urine Glucose Normal mg/dL (Normal) Microbiology Microbiology Date/Time Source Procedure Growth Status 12/03/24 09:14 Blood Blood Culture - Preliminary NO GROWTH AFTER 48 HOURS OF INCUBATION. Resulted Labs and/or images reviewed: Labs reviewed by me, Image(s) reviewed by me Assessment/Plan Assessment/Plan Impression: -Sepsis due to Acute Diverticulitis -septic shock -? Proctocolitis -recent gluteal abscess I&D -severe deconditioning with bed-bound status at this time -primary hypertension Plan: Events: No events overnight. Hemodynamically stable. Tolerating clear liquid diet -continue vancomycin, cefepime, Flagyl -GI consultation: Recommendations reviewed -CAD normal -wound culture -continue PPI -decrease IV fluids -advanced to full liquid diet -PT consultation Total time spent with patient discussing and formulating plan of care: 35 minutes. This medical document was created using an electronic medical record system with [employer] dictation system. Although this document has been carefully reviewed, there may still be some phonetic and typographical errors. These areas are purely typographical due to imperfections of the software programs, and do not reflect any compromise in the patient's medical care. Plan discussed with: Patient, Other (RN) My Orders Orders - RESHMA GUNDERSON NP Procedure Category Date Status Time Pt Request For Service PT 12/05/24 Logged 10:48 Date of Service: Dec 05, 2024 Billing Provider: RESHMA GUNDERSON NP Common Visit Codes: [id number] INP/OBS CARE(HIGH) RESHMA GUNDERSON NP Dec 05, 2024 11:15
--- NOTE | 2024-12-05 14:21 | ECG ---
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
--- NOTE | 2024-12-05 14:22 | ECG ---
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
[2024-12-05] MEDS ORDERED: CEFEPIME 1GM/ 50ML 50 ML IV SCH (15:00)
--- NOTE | 2024-12-05 15:35 | DVHPN2 ---
Progress Note Date Seen: Dec 05, 2024 Resident Creating Document: MIGUEL ANGEL CESAR RESIDENT Medical Necessity Reason Pt with a Central, PICC or Fol: No Subjective Review of Systems This is a 74-year-old female patient with hypertension who presented to the ER with a chief complaint of generalized weakness, chills and a buttock abscess. Patient was recently seen at [facility] and was diagnosed with hip abscess, underwent possible I and D and was discharged on antibiotics. She reports chills, generalized weakness, patient was not eating and drinking well. On arrival to the ER, patient was afebrile, pulse 50-60 beats per minute, patient was tachypneic and blood pressure was 70/40 mmHg. Patient received LR 30 mL/kg bolus. Blood pressure did not improve and patient was started on Levophed. Nephrology consulted for acute kidney injury 12/04 - Patient seen and examined in ER. Undergoing echocardiogram. BUN/creatinine trended down to baseline after IV resuscitation. Patient is off pressors. 12/05 - seen and examined at bedside. Overnight 1500 cc of urine. WBC downtrending. Creatinine downtrending. GFR improving to 93. Objective vital signs Vital Sign Date Time Temp Pulse Resp B/P (MAP) Pulse Ox O2 Delivery O2 Flow Rate FiO2 12/05/24 12:37 98.2 82 16 142/80 (100) 96 98.2 12/05/24 08:05 Room Air* 0 21 Total Intake and Output 12/04/24 12/04/24 12/05/24 15:00 23:00 07:00 Intake Total 500 ml 1700 ml Output Total 1300 ml 200 ml Balance -800 ml 1500 ml medications Current Medications Medications Dose Ordered Sig/Roberto Route Start Time Stop Time Status Last Admin Dose Admin Vancomycin HCl 0 ml @ 0 mls/hr UD IV 12/03/24 13:15 Ondansetron HCl 4 mg Q4HP PRN IV 12/03/24 13:15 Docusate Sodium 100 mg BIDPRN PRN PO 12/03/24 13:15 Acetaminophen 650 mg Q6HP PRN PO 12/03/24 13:15 Morphine Sulfate 2 mg Q30M PRN IV 12/03/24 14:15 Nitroglycerin 0.4 mg Q5MINP PRN SL 12/03/24 13:45 Metronidazole 100 ml @ 100 mls/hr Q8HR IV 12/04/24 14:00 12/05/24 05:56 100 MLS/HR Vancomycin HCl 150 ml @ 150 mls/hr Q12H IV 12/04/24 15:00 12/05/24 03:31 150 MLS/HR Sodium Chloride 1,000 ml @ 75 mls/hr [id number] IV 12/05/24 11:15 Cefepime HCl 50 ml @ 12.5 mls/hr Q8H IV 12/05/24 15:00 Examination Patient lying in bed, in no acute distress General: Well-built, afebrile, palor, mucosae are moist Cardiovascular: Regular S1 and S2. No murmurs, gallops or rubs. No JVD elevation. No pedal edema Respiratory: Normal B/L air entry on room air. Clear lung sounds on auscultation Abdomen: Soft, nontender, nondistended, normoactive bowel sounds, no rebound tenderness, no organomegaly, no masses Genitourinary: Deferred MSK/skin: Mobilizes 4 limbs. Skin is dry and warm Neurological: No motor, no sensitive deficits, normal speech. Pupils are isocoric and reactive. Psych/Mental Status: A/Ox3 laboratory and microbiology Laboratory Tests 12/05/24 06:05 Test 12/05/24 06:05 Range/Units Serum Glucose 83 74-106 mg/dL Microbiology Date/Time Source Procedure Growth Status 12/03/24 09:14 Blood Blood Culture - Preliminary NO GROWTH AFTER 48 HOURS OF INCUBATION. Resulted Labs and/or images reviewed: Labs reviewed by me, Image(s) reviewed by me Problem List/Assessment/Plan Problem List/Assessment/Plan Acute kidney injury likely prerenal in the setting of sepsis Hypotension ? Septic shock Right perianal soft tissue emphysema History of hypertension Prolonged QTC interval Anemia, likely normocytic Sinus bradycardia Plan: Given the downtrending BUN/creatinine, improving GFR, baseline now, Nephrology will sign off at this time. No acute nephrological workup indicated. Please reconsult us if deemed necessary. Recommend discontinuing IV fluids. We will monitor vanco trough Avoid NSAIDs Continue strict I&Os Patient is off pressors Continue NS 60 mL/hour Follow up with cultures Antibiotics per primary team Thank you for consulting us Plan discussed with patient in which all questions have been answered Case discussed with Dr. Cowan Plan discussed with: Patient Sepsis reassessment post fluid Is the fluid challenge complet: Yes Date of Reassessment: Dec 03, 2024 Time of Reassessment: 1100 Blood Culture Time: 913 Time Antibiotics Given: 928 Systolic BP: 119 Diastolic BP: 47 Blood Pressure Mean: 71 Respiration: 16 Respiratory Effort: Non-Labored Respiratory Pattern: Regular Oxygen Saturation: 96 Pulse Rate: 79 Pulse Location: Apical Pulse Strength: Normal Pulse Assessment Method: Auscultation Pulse Rhythm: Regular Capillary Refill: < 3 seconds Heart Sounds: S1 & S2 Breath sounds: Clear Skin Moisture: Dry Skin Tugor: WNL Skin Color: WNL MIGUEL ANGEL CESAR RESIDENT Dec 05, 2024 15:34
--- NOTE | 2024-12-05 17:28 | DVHPN2 ---
Progress Note - Dictate Date Seen: Dec 05, 2024 Medical Necessity Reason Pt with a Central, PICC or Fol: No Subjective No new complaints, patient resting comfortably Laboratory tests are improving vital signs Vital Sign Date Time Temp Pulse Resp B/P (MAP) Pulse Ox O2 Delivery O2 Flow Rate FiO2 12/05/24 16:41 98.5 75 16 141/78 (99) 97 98.5 12/05/24 08:05 Room Air* 0 21 Total Intake and Output 12/04/24 12/04/24 12/05/24 15:00 23:00 07:00 Intake Total 500 ml 1700 ml Output Total 1300 ml 200 ml Balance -800 ml 1500 ml medications Current Medications Medications Dose Ordered Sig/Roberto Route Start Time Stop Time Status Last Admin Dose Admin Vancomycin HCl 0 ml @ 0 mls/hr UD IV 12/03/24 13:15 Ondansetron HCl 4 mg Q4HP PRN IV 12/03/24 13:15 Docusate Sodium 100 mg BIDPRN PRN PO 12/03/24 13:15 Acetaminophen 650 mg Q6HP PRN PO 12/03/24 13:15 Morphine Sulfate 2 mg Q30M PRN IV 12/03/24 14:15 Nitroglycerin 0.4 mg Q5MINP PRN SL 12/03/24 13:45 Metronidazole 100 ml @ 100 mls/hr Q8HR IV 12/04/24 14:00 12/05/24 15:56 100 MLS/HR Vancomycin HCl 150 ml @ 150 mls/hr Q12H IV 12/04/24 15:00 12/05/24 16:59 150 MLS/HR Cefepime HCl 50 ml @ 12.5 mls/hr Q8H IV 12/05/24 18:00 objective General: NAD, AAOX3 Chest: lung santiago clear to auscultation Heart: RRR, no murmur Abdomen: non-distended, no tenderness to palpation, +BS laboratory and microbiology Laboratory Tests 12/05/24 06:05 Test 12/05/24 06:05 Range/Units Serum Glucose 83 74-106 mg/dL Problems(with codes): (1) Perianal abscess (2) Diverticulitis (3) Acute kidney failure, unspecified (4) Sepsis, unspecified organism (5) Diarrhea, unspecified (6) Severe sepsis with septic shock (7) Generalized weakness Prognosis Plan At this time we should continue antibiotic regimen for the next two weeks to help heal her perianal inflammatory changes and sepsis We can give her stool softeners for her constipation Patient will likely need an elective colonoscopy once she is medically stabilized possibly as an outpatient in 4-6 weeks I will follow up patient with you in re-evaluate her in a.m. Plan discussed with: Patient, Son, Other (Flakita Reynoso) Is the fluid challenge complet: Yes Date of Reassessment: Dec 03, 2024 Time of Reassessment: 1099 Blood Culture Time: 913 Time Antibiotics Given: 928 Systolic BP: 119 Diastolic BP: 47 Blood Pressure Mean: 71 Respiration: 16 Respiratory Effort: Non-Labored Respiratory Pattern: Regular Oxygen Saturation: 96 Pulse Rate: 79 Pulse Location: Apical Pulse Strength: Normal Pulse Assessment Method: Auscultation Pulse Rhythm: Regular Capillary Refill: < 3 seconds Heart Sounds: S1 & S2 Breath sounds: Clear Skin Moisture: Dry Skin Tugor: WNL Skin Color: WNL RICARDO TRUONG MD Dec 05, 2024 17:28
[2024-12-05] MEDS: ACETAMINOPHEN 325 MG TAB PO PRN (18:17)
[2024-12-05] MEDS: CEFEPIME 1GM/ 50ML 50 ML IV SCH (18:20)
--- NOTE | 2024-12-05 21:32 | DVHPN2 ---
Progress Note - Dictate Date Seen: Dec 05, 2024 Medical Necessity Reason Pt with a Central, PICC or Fol: No Subjective Patient was seen and evaluated in follow up. Patient reports improvement in abdominal pain. Echocardiogram showed an EF of 65%. Telemetry reviewed. vital signs Vital Sign Date Time Temp Pulse Resp B/P (MAP) Pulse Ox O2 Delivery O2 Flow Rate FiO2 12/05/24 12:37 98.2 82 16 142/80 (100) 96 98.2 12/05/24 08:05 Room Air* 0 21 Total Intake and Output 12/04/24 12/04/24 12/05/24 15:00 23:00 07:00 Intake Total 500 ml 1700 ml Output Total 1300 ml 200 ml Balance -800 ml 1500 ml medications Current Medications Medications Dose Ordered Sig/Roberto Route Start Time Stop Time Status Last Admin Dose Admin Vancomycin HCl 0 ml @ 0 mls/hr UD IV 12/03/24 13:15 Ondansetron HCl 4 mg Q4HP PRN IV 12/03/24 13:15 Docusate Sodium 100 mg BIDPRN PRN PO 12/03/24 13:15 Acetaminophen 650 mg Q6HP PRN PO 12/03/24 13:15 Morphine Sulfate 2 mg Q30M PRN IV 12/03/24 14:15 Nitroglycerin 0.4 mg Q5MINP PRN SL 12/03/24 13:45 Cefepime HCl 50 ml @ 12.5 mls/hr DAILY IV 12/04/24 10:00 12/05/24 09:09 12.5 MLS/HR Metronidazole 100 ml @ 100 mls/hr Q8HR IV 12/04/24 14:00 12/05/24 05:56 100 MLS/HR Vancomycin HCl 150 ml @ 150 mls/hr Q12H IV 12/04/24 15:00 12/05/24 03:31 150 MLS/HR Sodium Chloride 1,000 ml @ 75 mls/hr [id number] IV 12/05/24 11:15 objective GENERAL: Alert and oriented x 3. No acute distress. EYES: PERRL, EOMI. Anicteric. HENT: Moist mucous membranes. LUNGS: Clear to auscultation bilaterally. CARDIOVASCULAR: Regular rate and rhythm. ABDOMEN: Soft, non-tender and non-distended. EXTREMITIES: No edema. NEUROLOGIC: No focal neurological deficits. SKIN: Warm, dry. laboratory and microbiology Laboratory Tests 12/05/24 06:05 Test 12/05/24 06:05 Range/Units Serum Glucose 83 74-106 mg/dL Problem List Hypotension in the setting of severe sepsis. Prolonged QTc interval. History of hypertension. Right perianal soft tissue emphysema. Acute kidney injury. Dementia. History of tobacco use. Assessment/Plan Continued all current supportive medical care. IV antibiotics as ordered. Morphine and Tylenol for pain management. IVFs. Nitro SL. Additional plan as per the hospital course. Plan discussed with: Patient Is the fluid challenge complet: Yes Date of Reassessment: Dec 03, 2024 Time of Reassessment: 1100 Blood Culture Time: 913 Time Antibiotics Given: 928 Systolic BP: 119 Diastolic BP: 47 Blood Pressure Mean: 71 Respiration: 16 Respiratory Effort: Non-Labored Respiratory Pattern: Regular Oxygen Saturation: 96 Pulse Rate: 79 Pulse Location: Apical Pulse Strength: Normal Pulse Assessment Method: Auscultation Pulse Rhythm: Regular Capillary Refill: < 3 seconds Heart Sounds: S1 & S2 Breath sounds: Clear Skin Moisture: Dry Skin Tugor: WNL Skin Color: WNL ALBERTO SERRATO MD Dec 05, 2024 13:11
[2024-12-06] VITALS (8 sets, daily range): BP systolic 112–142; BP diastolic 65–87; PULSE 56–98; RESP 14–18; TEMP 97.4–98.7; O2SAT 93–96
[2024-12-06 02:19] LABS: Hematocrit 31.0 % (36.0-46.0); Hemoglobin 10.5 g/dL (12.2-16.2); Mean Corpuscular Hemoglobin 30.8 pg (28.0-32.0); Mean Corpuscular Volume 90.8 fL (80.0-100.0); Nucleated Red Blood Cells % 0.0 %
[2024-12-06 02:39] LABS: Anion Gap 7 (5-15); Carbon Dioxide 25 mmol/L (20-31); Potassium 3.7 mmol/L (3.5-5.1); Sodium 139 mmol/L (136-145)
[2024-12-06 02:40] LABS: Calcium 9.3 mg/dL (8.7-10.4)
[2024-12-06 02:41] LABS: Chloride 107 mmol/L (98-107)
[2024-12-06 02:45] LABS: BUN/Creatinine Ratio 18.3 (10.0-20.0); Blood Urea Nitrogen 11 mg/dL (9-23); Glucose 89 mg/dL (74-106)
[2024-12-06] MEDS ORDERED: OFL50TS (15:07)
[2024-12-06] MEDS ORDERED: prednisoLONE ACETATE 1% OPTH SUSP 5ML LEFTEYE ONE (18:00)
[2024-12-06] MEDS: prednisoLONE ACETATE 1% OPTH SUSP 5ML EACHEYE SCH (18:29)
--- NOTE | 2024-12-06 21:16 | DVHPN2 ---
Progress Note - Dictate Date Seen: Dec 06, 2024 Medical Necessity Reason Pt with a Central, PICC or Fol: No Subjective No new complaints, patient resting comfortably Tolerating diet Laboratory tests are improving vital signs Vital Sign Date Time Temp Pulse Resp B/P (MAP) Pulse Ox O2 Delivery O2 Flow Rate FiO2 12/06/24 17:30 97.4 98 14 132/80 (97) 96 97.4 12/06/24 08:00 Room Air* 0 21 Total Intake and Output 12/05/24 12/05/24 12/06/24 15:00 23:00 07:00 Intake Total 300 ml 800 ml 550 ml Output Total 1850 ml 450 ml Balance 300 ml -1050 ml 100 ml medications Current Medications Medications Dose Ordered Sig/Roberto Route Start Time Stop Time Status Last Admin Dose Admin Ondansetron HCl 4 mg Q4HP PRN IV 12/03/24 13:15 Docusate Sodium 100 mg BIDPRN PRN PO 12/03/24 13:15 Acetaminophen 650 mg Q6HP PRN PO 12/03/24 13:15 12/05/24 18:17 650 MG Morphine Sulfate 2 mg Q30M PRN IV 12/03/24 14:15 Nitroglycerin 0.4 mg Q5MINP PRN SL 12/03/24 13:45 Metronidazole 100 ml @ 100 mls/hr Q8HR IV 12/04/24 14:00 12/06/24 15:08 100 MLS/HR Cefepime HCl 50 ml @ 12.5 mls/hr Q8H IV 12/05/24 18:00 12/06/24 18:30 12.5 MLS/HR Lisinopril 20 mg DAILY PO 12/07/24 10:00 Prednisolone Acetate 1 drop QID EACHEYE 12/06/24 18:00 12/06/24 18:29 1 DROP objective General: NAD, AAOX3 Chest: lung santiago clear to auscultation Heart: RRR, no murmur Abdomen: non-distended, no tenderness to palpation, +BS laboratory and microbiology Laboratory Tests 12/06/24 02:00 Test 12/06/24 02:00 Range/Units Serum Glucose 89 74-106 mg/dL Problems(with codes): (1) Diverticulitis (2) Perianal abscess (3) Sepsis, unspecified organism (4) Diarrhea, unspecified (5) Severe sepsis with septic shock (6) Generalized weakness Prognosis Plan At this time we should continue antibiotic regimen for the next two weeks to help heal her perianal inflammatory changes and sepsis We can give her stool softeners for her constipation Patient will likely need an elective colonoscopy once she is medically stabilized possibly as an outpatient in 4-6 weeks I will follow up patient with you in re-evaluate her in a.m. Plan discussed with: Other (None) Is the fluid challenge complet: Yes Date of Reassessment: Dec 03, 2024 Time of Reassessment: 11:00 Blood Culture Time: 09:14 Time Antibiotics Given: 09:29 Systolic BP: 119 Diastolic BP: 47 Blood Pressure Mean: 71 Respiration: 16 Respiratory Effort: Non-Labored Respiratory Pattern: Regular Oxygen Saturation: 96 Pulse Rate: 79 Pulse Location: Apical Pulse Strength: Normal Pulse Assessment Method: Auscultation Pulse Rhythm: Regular Capillary Refill: < 3 seconds Heart Sounds: S1 & S2 Breath sounds: Clear Skin Moisture: Dry Skin Tugor: WNL Skin Color: WNL RICARDO TRUONG MD Dec 06, 2024 21:16
--- NOTE | 2024-12-06 21:48 | DVHPN2 ---
Progress Note - Dictate Date Seen: Dec 06, 2024 Medical Necessity Reason Pt with a Central, PICC or Fol: No Subjective Patient was seen and evaluated in follow up. Patient resting comfortably in bed. Chemistry panel is unremarkable. Telemetry reviewed. vital signs Vital Sign Date Time Temp Pulse Resp B/P (MAP) Pulse Ox O2 Delivery O2 Flow Rate FiO2 12/06/24 12:30 98.1 83 16 142/81 (101) 95 98.1 12/05/24 20:00 Room Air* 0 21 Total Intake and Output 12/05/24 12/05/24 12/06/24 15:00 23:00 07:00 Intake Total 300 ml 800 ml 550 ml Output Total 1850 ml 450 ml Balance 300 ml -1050 ml 100 ml medications Current Medications Medications Dose Ordered Sig/Roberto Route Start Time Stop Time Status Last Admin Dose Admin Vancomycin HCl 0 ml @ 0 mls/hr UD IV 12/03/24 13:15 Ondansetron HCl 4 mg Q4HP PRN IV 12/03/24 13:15 Docusate Sodium 100 mg BIDPRN PRN PO 12/03/24 13:15 Acetaminophen 650 mg Q6HP PRN PO 12/03/24 13:15 12/05/24 18:17 650 MG Morphine Sulfate 2 mg Q30M PRN IV 12/03/24 14:15 Nitroglycerin 0.4 mg Q5MINP PRN SL 12/03/24 13:45 Metronidazole 100 ml @ 100 mls/hr Q8HR IV 12/04/24 14:00 12/06/24 06:18 100 MLS/HR Vancomycin HCl 150 ml @ 150 mls/hr Q12H IV 12/04/24 15:00 12/06/24 04:58 150 MLS/HR Cefepime HCl 50 ml @ 12.5 mls/hr Q8H IV 12/05/24 18:00 12/06/24 10:45 12.5 MLS/HR objective GENERAL: Alert and oriented x 3. No acute distress. EYES: PERRL, EOMI. Anicteric. HENT: Moist mucous membranes. LUNGS: Clear to auscultation bilaterally. CARDIOVASCULAR: Regular rate and rhythm. ABDOMEN: Soft, non-tender and non-distended. EXTREMITIES: No edema. NEUROLOGIC: No focal neurological deficits. SKIN: Warm, dry. laboratory and microbiology Laboratory Tests 12/06/24 02:00 Test 12/06/24 02:00 Range/Units Serum Glucose 89 74-106 mg/dL Problem List Hypotension in the setting of severe sepsis. Prolonged QTc interval. History of hypertension. Right perianal soft tissue emphysema. Acute kidney injury. Dementia. History of tobacco use. Assessment/Plan Continued all current supportive medical care. IV antibiotics as ordered. Morphine for pain management. IVFs. Nitro SL. Additional plan as per the hospital course. Plan discussed with: Patient Is the fluid challenge complet: Yes Date of Reassessment: Dec 03, 2024 Time of Reassessment: 11:00 Blood Culture Time: 09:14 Time Antibiotics Given: 09:29 Systolic BP: 119 Diastolic BP: 47 Blood Pressure Mean: 71 Respiration: 16 Respiratory Effort: Non-Labored Respiratory Pattern: Regular Oxygen Saturation: 96 Pulse Rate: 79 Pulse Location: Apical Pulse Strength: Normal Pulse Assessment Method: Auscultation Pulse Rhythm: Regular Capillary Refill: < 3 seconds Heart Sounds: S1 & S2 Breath sounds: Clear Skin Moisture: Dry Skin Tugor: WNL Skin Color: WNL ALBERTO SERRATO MD Dec 06, 2024 13:32
[2024-12-07] VITALS (7 sets, daily range): BP systolic 127–147; BP diastolic 76–82; PULSE 75–87; RESP 16–20; TEMP 97.6–98.6; O2SAT 95–98
[2024-12-07 07:32] LABS: Hematocrit 32.6 % (36.0-46.0); Hemoglobin 11.1 g/dL (12.2-16.2); Mean Corpuscular Hemoglobin 31.1 pg (28.0-32.0); Mean Corpuscular Volume 91.6 fL (80.0-100.0); Nucleated Red Blood Cells % 0.2 %
[2024-12-07 07:48] LABS: Anion Gap 9 (5-15); Carbon Dioxide 22 mmol/L (20-31); Potassium 3.5 mmol/L (3.5-5.1); Sodium 138 mmol/L (136-145)
[2024-12-07 07:50] LABS: Calcium 9.5 mg/dL (8.7-10.4)
[2024-12-07 07:54] LABS: BUN/Creatinine Ratio 13.8 (10.0-20.0); Glucose 93 mg/dL (74-106)
[2024-12-07 07:57] LABS: Blood Urea Nitrogen 8 mg/dL (9-23); Chloride 107 mmol/L (98-107)
[2024-12-07] MEDS: LISINOPRIL 20 MG TAB PO SCH (10:08)
--- NOTE | 2024-12-07 15:18 | DVHPN2 ---
Subjective Denies any abdominal pain at this time. Reviewed: Care Plan, H&P, Labs, Medications Changes from previous H/P or p: No Changes Eyes: No Pain, No Vision change, No Conjunctivae inflammation, No Eyelid inflammation, No Other, No Redness ENT: No Ear pain, No Ear discharge, No Nose pain, No Nose discharge, No Nose congestion, No Mouth pain, No Mouth swelling, No Throat pain, No Throat swelling, No Other Cardiovascular: No Chest Pain, No Palpitations, No Orthopnea, No Paroxysmal Noc. Dyspnea, No Edema, No Lt Headedness; Other (Hypotension) Respiratory: Cough; No Dry, No Shortness of breath, No SOB with excertion, No Wheezing, No Hemoptysis, No Pleuritic Pain, No Sputum, No Other Gastrointestinal: No Nausea, No Vomiting, No Abdominal Pain, No Diarrhea, No Constipation, No Melena, No Hematochezia, No Other Genitourinary: No Dysuria, No Frequency, No Incontinence, No Hematuria, No Retention, No Other Musculoskeletal: No other, No neck pain, No shoulder pain, No arm pain, No back pain, No hand pain, No leg pain, No foot pain Skin: No Rash, No Lesions, No Jaundice, No Bruising; Other (Sacrum has a 1 in incisional wound no discharge, mild redness surrounding it.) Objective Vitals Vital Signs Date Time Temp Pulse Resp B/P (MAP) Pulse Ox O2 Delivery O2 Flow Rate FiO2 12/07/24 10:08 147/76 12/07/24 09:00 98.6 75 18 95 98.6 12/07/24 08:00 Room Air* 0 21 Intake/Output Intake and Output 12/07/24 07:00 Intake Total 1280 ml Output Total 1425 ml Balance -145 ml Intake Oral 830 ml IV Total 450 ml Output Urine Total 1425 ml # Bowel Movements 1 General Appearance: Alert, Oriented X3, Cooperative, mild distress HEENT: Atraumatic, PERRLA Lungs: Clear to auscultation, Normal air movement Cardiovascular: Normal S1, Normal S2 Abdomen: Normal bowel sounds, Soft, Other (Tenderness to suprapubic pain) Genitourinary: No Apparent Abnormalities, Bladder Flat Musculoskeletal: Normal sensory function, Normal motor function Neuro: Sensation intact, Cranial nerves 3-12 NL Skin: Dry, Intact, Wounds (See nurse notes and pictures) Psych/Mental Status: Mental status NL, Mood NL Medications Current Medications Medications Dose Ordered Sig/Roberto Route Start Time Stop Time Status Last Admin Dose Admin Ondansetron HCl 4 mg Q4HP PRN IV 12/03/24 13:15 Docusate Sodium 100 mg BIDPRN PRN PO 12/03/24 13:15 Acetaminophen 650 mg Q6HP PRN PO 12/03/24 13:15 12/05/24 18:17 650 MG Morphine Sulfate 2 mg Q30M PRN IV 12/03/24 14:15 Nitroglycerin 0.4 mg Q5MINP PRN SL 12/03/24 13:45 Metronidazole 100 ml @ 100 mls/hr Q8HR IV 12/04/24 14:00 12/07/24 14:44 100 MLS/HR Cefepime HCl 50 ml @ 12.5 mls/hr Q8H IV 12/05/24 18:00 12/07/24 10:08 12.5 MLS/HR Lisinopril 20 mg DAILY PO 12/07/24 10:00 12/07/24 10:08 20 MG Prednisolone Acetate 1 drop QID EACHEYE 12/06/24 18:00 12/07/24 12:33 1 DROP Laboratory Results Laboratory Tests 12/07/24 06:32 Chemistry Test 12/07/24 06:32 Calcium Level 9.5 mg/dL (8.7-10.4) Urinalysis Test 12/03/24 08:48 Urine Color Yellow (Yellow) Urine Clarity Clear (Clear) Urine pH 6.0 (5.0-9.0) Urine Specific [place] 1.012 (1.001-1.035) Urine Protein Negative (Negative) Urine Ketones Negative (Negative) Urine Blood Negative /uL (Negative) Urine Nitrite Negative (Negative) Urine Bilirubin Negative (Negative) Urine Urobilinogen Normal mg/dL (Negative) Urine Leukocyte Esterase Negative /uL (Negative) Urine RBC 1 /hpf (0 - 4) Urine Microscopic WBC 1 /HPF (0-5) Urine Squamous Epithelial Cells Few /hpf (<5) Urine Bacteria None seen /hpf (None Seen) Urine Yeast (Budding) Occasional /hpf (None Urine Glucose Normal mg/dL (Normal) Microbiology Microbiology Date/Time Source Procedure Growth Status 12/03/24 09:14 Blood Blood Culture - Preliminary NO GROWTH AFTER 72 HOURS OF INCUBATION. Resulted Labs and/or images reviewed: Labs reviewed by me, Image(s) reviewed by me Assessment/Plan Assessment/Plan Impression: -Sepsis due to Acute Diverticulitis -septic shock -? Proctocolitis -recent gluteal abscess I&D -severe deconditioning with bed-bound status at this time -primary hypertension Plan: Events: No events overnight. Patient ambulating 20 ft with physical therapy. Tolerating regular diet. Antibiotics de-escalated. -antibiotics: Rocephin, Flagyl 500 mg p.o. t.i.d. -continue PPI -social service consultation for discharge planning. Placement in his group home facility for continued physical therapy -PT consultation Total time spent with patient discussing and formulating plan of care: 35 minutes. This medical document was created using an electronic medical record system with [employer] system. Although this document has been carefully reviewed, there may still be some phonetic and typographical errors. These areas are purely typographical due to imperfections of the software programs, and do not reflect any compromise in the patient's medical care. Plan discussed with: Patient, Son, Other (RN) My Orders Orders - RESHMA GUNDERSON NP Procedure Category Date Status Time Transfer Orders XFER 12/06/24 Transmitted 15:07 Lisinopril Tablet PHA 12/07/24 In Process (Zestril Tablet) 10:00 Prednisolone Acetate PHA 12/06/24 In Process 1% (Pred Forte) 18:00 Date of Service: Dec 07, 2024 Billing Provider: RESHMA GUNDERSON NP Common Visit Codes: [id number] INP/OBS CARE(HIGH) RESHAM GUNDERSON NP Dec 07, 2024 15:18
--- NOTE | 2024-12-07 16:10 | DVHPN2 ---
Progress Note - Dictate Date Seen: Dec 07, 2024 Medical Necessity Reason Pt with a Central, PICC or Fol: No Subjective No new complaints, patient resting comfortably Tolerating diet Laboratory tests are improving Abdominal pain is improving vital signs Vital Sign Date Time Temp Pulse Resp B/P (MAP) Pulse Ox O2 Delivery O2 Flow Rate FiO2 12/07/24 13:00 98.4 87 20 140/78 (98) 95 98.4 12/07/24 08:00 Room Air* 0 21 Total Intake and Output 12/06/24 12/06/24 12/07/24 15:00 23:00 07:00 Intake Total 550 ml 450 ml 280 ml Output Total 925 ml 500 ml Balance 550 ml -475 ml -220 ml medications Current Medications Medications Dose Ordered Sig/Roberto Route Start Time Stop Time Status Last Admin Dose Admin Ondansetron HCl 4 mg Q4HP PRN IV 12/03/24 13:15 Docusate Sodium 100 mg BIDPRN PRN PO 12/03/24 13:15 Acetaminophen 650 mg Q6HP PRN PO 12/03/24 13:15 12/05/24 18:17 650 MG Morphine Sulfate 2 mg Q30M PRN IV 12/03/24 14:15 Nitroglycerin 0.4 mg Q5MINP PRN SL 12/03/24 13:45 Metronidazole 100 ml @ 100 mls/hr Q8HR IV 12/04/24 14:00 12/07/24 14:44 100 MLS/HR Lisinopril 20 mg DAILY PO 12/07/24 10:00 12/07/24 10:08 20 MG Prednisolone Acetate 1 drop QID EACHEYE 12/06/24 18:00 12/07/24 12:33 1 DROP Ceftriaxone Sodium 50 ml @ 100 mls/hr DAILY@09 IV 12/08/24 09:00 UNV Metronidazole 500 mg Q8HR PO 12/07/24 22:00 UNV objective General: NAD, AAOX3 Chest: lung santiago clear to auscultation Heart: RRR, no murmur Abdomen: non-distended, no tenderness to palpation, +BS laboratory and microbiology Laboratory Tests 12/07/24 06:32 Test 12/07/24 06:32 Range/Units Serum Glucose 93 74-106 mg/dL Problems(with codes): (1) Diverticulitis (2) Perianal abscess (3) Acute kidney failure, unspecified (4) Sepsis, unspecified organism (5) Diarrhea, unspecified Prognosis Plan Advance diet as tolerated On IV antibiotics 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 Outpatient elective colonoscopy Plan discussed with: Patient Is the fluid challenge complet: Yes Date of Reassessment: Dec 03, 2024 Time of Reassessment: 11:00 Blood Culture Time: 09:14 Time Antibiotics Given: 09:29 Systolic BP: 119 Diastolic BP: 47 Blood Pressure Mean: 71 Respiration: 16 Respiratory Effort: Non-Labored Respiratory Pattern: Regular Oxygen Saturation: 96 Pulse Rate: 79 Pulse Location: Apical Pulse Strength: Normal Pulse Assessment Method: Auscultation Pulse Rhythm: Regular Capillary Refill: < 3 seconds Heart Sounds: S1 & S2 Breath sounds: Clear Skin Moisture: Dry Skin Tugor: WNL Skin Color: WNL RICARDO TRUONG MD Dec 07, 2024 16:10
[2024-12-07] MEDS: cefTRIAXone 1GM/50ML D5W 50 ML IV SCH (17:55)
[2024-12-07] MEDS: metroNIDAZOLE 500 MG TAB PO SCH (21:53)
--- NOTE | 2024-12-07 23:30 | DVHPN2 ---
Progress Note - Dictate Date Seen: Dec 07, 2024 Medical Necessity Reason Pt with a Central, PICC or Fol: No Subjective Patient was seen and evaluated in follow up. No overnight events. Patient states abdominal pain is improving. Patient tolerating po intake. Telemetry reviewed. vital signs Vital Sign Date Time Temp Pulse Resp B/P (MAP) Pulse Ox O2 Delivery O2 Flow Rate FiO2 12/07/24 10:08 147/76 12/07/24 09:00 98.6 75 18 95 98.6 12/07/24 08:00 Room Air* 0 21 Total Intake and Output 12/06/24 12/06/24 12/07/24 15:00 23:00 07:00 Intake Total 550 ml 450 ml 280 ml Output Total 925 ml 500 ml Balance 550 ml -475 ml -220 ml medications Current Medications Medications Dose Ordered Sig/Roberto Route Start Time Stop Time Status Last Admin Dose Admin Ondansetron HCl 4 mg Q4HP PRN IV 12/03/24 13:15 Docusate Sodium 100 mg BIDPRN PRN PO 12/03/24 13:15 Acetaminophen 650 mg Q6HP PRN PO 12/03/24 13:15 12/05/24 18:17 650 MG Morphine Sulfate 2 mg Q30M PRN IV 12/03/24 14:15 Nitroglycerin 0.4 mg Q5MINP PRN SL 12/03/24 13:45 Metronidazole 100 ml @ 100 mls/hr Q8HR IV 12/04/24 14:00 12/07/24 06:20 100 MLS/HR Cefepime HCl 50 ml @ 12.5 mls/hr Q8H IV 12/05/24 18:00 12/07/24 10:08 12.5 MLS/HR Lisinopril 20 mg DAILY PO 12/07/24 10:00 12/07/24 10:08 20 MG Prednisolone Acetate 1 drop QID EACHEYE 12/06/24 18:00 12/07/24 12:33 1 DROP objective GENERAL: Alert and oriented x 3. No acute distress. EYES: PERRL, EOMI. Anicteric. HENT: Moist mucous membranes. LUNGS: Clear to auscultation bilaterally. CARDIOVASCULAR: Regular rate and rhythm. ABDOMEN: Soft, non-tender and non-distended. EXTREMITIES: No edema. NEUROLOGIC: No focal neurological deficits. SKIN: Warm, dry. laboratory and microbiology Laboratory Tests 12/07/24 06:32 Test 12/07/24 06:32 Range/Units Serum Glucose 93 74-106 mg/dL Problem List Hypotension in the setting of severe sepsis. Prolonged QTc interval. History of hypertension. Right perianal soft tissue emphysema. Acute kidney injury. Dementia. History of tobacco use. Assessment/Plan Continued all current supportive medical care. IV antibiotics as ordered. Morphine for pain management. Nitro SL. Lisinopril. Additional plan as per the hospital course. Plan discussed with: Patient Is the fluid challenge complet: Yes Date of Reassessment: Dec 03, 2024 Time of Reassessment: 11:00 Blood Culture Time: 09:14 Time Antibiotics Given: 09:29 Systolic BP: 119 Diastolic BP: 47 Blood Pressure Mean: 71 Respiration: 16 Respiratory Effort: Non-Labored Respiratory Pattern: Regular Oxygen Saturation: 96 Pulse Rate: 79 Pulse Location: Apical Pulse Strength: Normal Pulse Assessment Method: Auscultation Pulse Rhythm: Regular Capillary Refill: < 3 seconds Heart Sounds: S1 & S2 Breath sounds: Clear Skin Moisture: Dry Skin Tugor: WNL Skin Color: WNL ALBERTO SERRATO MD Dec 07, 2024 13:04
[2024-12-08] VITALS (8 sets, daily range): BP systolic 115–135; BP diastolic 62–83; PULSE 78–94; RESP 15–21; TEMP 97.5–98.4; O2SAT 93–98
--- NOTE | 2024-12-08 14:14 | DVHPN2 ---
Subjective Patient is seen and examined at bedside. No complaint today. Patient however very sleepy. Reviewed: Care Plan, H&P, Labs, Medications Changes from previous H/P or p: No Changes Eyes: No Pain, No Vision change, No Conjunctivae inflammation, No Eyelid inflammation, No Other, No Redness ENT: No Ear pain, No Ear discharge, No Nose pain, No Nose discharge, No Nose congestion, No Mouth pain, No Mouth swelling, No Throat pain, No Throat swelling, No Other Cardiovascular: No Chest Pain, No Palpitations, No Orthopnea, No Paroxysmal Noc. Dyspnea, No Edema, No Lt Headedness; Other (Hypotension) Respiratory: Cough; No Dry, No Shortness of breath, No SOB with excertion, No Wheezing, No Hemoptysis, No Pleuritic Pain, No Sputum, No Other Gastrointestinal: No Nausea, No Vomiting, No Abdominal Pain, No Diarrhea, No Constipation, No Melena, No Hematochezia, No Other Genitourinary: No Dysuria, No Frequency, No Incontinence, No Hematuria, No Retention, No Other Musculoskeletal: No other, No neck pain, No shoulder pain, No arm pain, No back pain, No hand pain, No leg pain, No foot pain Skin: No Rash, No Lesions, No Jaundice, No Bruising; Other (Sacrum has a 1 in incisional wound no discharge, mild redness surrounding it.) Objective Vitals Vital Signs Date Time Temp Pulse Resp B/P (MAP) Pulse Ox O2 Delivery O2 Flow Rate FiO2 12/08/24 13:00 97.5 87 20 128/83 (98) 98 97.5 12/08/24 08:00 Room Air* 0 21 Intake/Output Intake and Output 12/08/24 07:00 Intake Total 2175 ml Output Total 1500 ml Balance 675 ml Intake Oral 1925 ml IV Total 250 ml Output Urine Total 1500 ml General Appearance: Alert, Oriented X3, Cooperative, mild distress HEENT: Atraumatic, PERRLA Lungs: Clear to auscultation, Normal air movement Cardiovascular: Normal S1, Normal S2 Abdomen: Normal bowel sounds, Soft, Other (Tenderness to suprapubic pain) Genitourinary: No Apparent Abnormalities, Bladder Flat Musculoskeletal: Normal sensory function, Normal motor function Neuro: Sensation intact, Cranial nerves 3-12 NL Skin: Dry, Intact, Wounds (See nurse notes and pictures) Psych/Mental Status: Mental status NL, Mood NL Medications Current Medications Medications Dose Ordered Sig/Roberto Route Start Time Stop Time Status Last Admin Dose Admin Ondansetron HCl 4 mg Q4HP PRN IV 12/03/24 13:15 Docusate Sodium 100 mg BIDPRN PRN PO 12/03/24 13:15 Acetaminophen 650 mg Q6HP PRN PO 12/03/24 13:15 12/05/24 18:17 650 MG Morphine Sulfate 2 mg Q30M PRN IV 12/03/24 14:15 Nitroglycerin 0.4 mg Q5MINP PRN SL 12/03/24 13:45 Lisinopril 20 mg DAILY PO 12/07/24 10:00 12/08/24 10:40 20 MG Prednisolone Acetate 1 drop QID EACHEYE 12/06/24 18:00 12/08/24 12:02 1 DROP Ceftriaxone Sodium 50 ml @ 100 mls/hr DAILY@09 IV 12/07/24 18:00 12/08/24 10:36 100 MLS/HR Metronidazole 500 mg Q8HR PO 12/07/24 22:00 12/08/24 05:14 500 MG Laboratory Results Laboratory Tests 12/07/24 06:32 Urinalysis Test 12/03/24 08:48 Urine Color Yellow (Yellow) Urine Clarity Clear (Clear) Urine pH 6.0 (5.0-9.0) Urine Specific [place] 1.012 (1.001-1.035) Urine Protein Negative (Negative) Urine Ketones Negative (Negative) Urine Blood Negative /uL (Negative) Urine Nitrite Negative (Negative) Urine Bilirubin Negative (Negative) Urine Urobilinogen Normal mg/dL (Negative) Urine Leukocyte Esterase Negative /uL (Negative) Urine RBC 1 /hpf (0 - 4) Urine Microscopic WBC 1 /HPF (0-5) Urine Squamous Epithelial Cells Few /hpf (<5) Urine Bacteria None seen /hpf (None Seen) Urine Yeast (Budding) Occasional /hpf (None Urine Glucose Normal mg/dL (Normal) Microbiology Microbiology Date/Time Source Procedure Growth Status 12/03/24 09:14 Blood Blood Culture - Final NO GROWTH AFTER 5 DAYS OF INCUBATION. Complete Labs and/or images reviewed: Labs reviewed by me Assessment/Plan Assessment/Plan -Sepsis due to Acute Diverticulitis -septic shock -? Proctocolitis -recent gluteal abscess I&D -severe deconditioning with bed-bound status at this time -primary hypertension Plan: Continuing current management Continuing with physical therapy Continuing with antibiotic Rocephin and Flagyl Continuing with PPI Waiting for senior care home facility placement Discussed with social media manager. This medical document was created using an electronic medical record system with [employer] direct computerized dictation system. Although this document has been carefully reviewed, there may still be some phonetic and typographical errors. These areas are purely typographical due to imperfections of the software programs, and do not reflect any compromise in the patient's medical care. Plan discussed with: Patient Date of Service: Dec 08, 2024 Billing Provider: JACINTA WHEELER MD Common Visit Codes: [id number] INP/OBS CARE(HIGH) JACINTA WHEELER MD Dec 08, 2024 14:14
--- NOTE | 2024-12-08 17:21 | DVHPN2 ---
Progress Note - Dictate Date Seen: Dec 08, 2024 Medical Necessity Reason Pt with a Central, PICC or Fol: No Subjective No new complaints, patient resting comfortably Tolerating diet. One bowel movement recorded yesterday Laboratory tests are improving; H&H is stable Abdominal pain is improving vital signs Vital Sign Date Time Temp Pulse Resp B/P (MAP) Pulse Ox O2 Delivery O2 Flow Rate FiO2 12/08/24 16:33 98.4 94 21 135/62 (86) 93 98.4 12/08/24 08:00 Room Air* 0 21 Total Intake and Output 12/07/24 12/07/24 12/08/24 15:00 23:00 07:00 Intake Total 150 ml 1580 ml 445 ml Output Total 1500 ml Balance 150 ml 80 ml 445 ml medications Current Medications Medications Dose Ordered Sig/Roberto Route Start Time Stop Time Status Last Admin Dose Admin Ondansetron HCl 4 mg Q4HP PRN IV 12/03/24 13:15 Docusate Sodium 100 mg BIDPRN PRN PO 12/03/24 13:15 Acetaminophen 650 mg Q6HP PRN PO 12/03/24 13:15 12/05/24 18:17 650 MG Morphine Sulfate 2 mg Q30M PRN IV 12/03/24 14:15 Nitroglycerin 0.4 mg Q5MINP PRN SL 12/03/24 13:45 Lisinopril 20 mg DAILY PO 12/07/24 10:00 12/08/24 10:40 20 MG Prednisolone Acetate 1 drop QID EACHEYE 12/06/24 18:00 12/08/24 12:02 1 DROP Ceftriaxone Sodium 50 ml @ 100 mls/hr DAILY@09 IV 12/07/24 18:00 12/08/24 10:36 100 MLS/HR Metronidazole 500 mg Q8HR PO 12/07/24 22:00 12/08/24 16:21 500 MG objective General: NAD, AAOX3 Chest: lung santiago clear to auscultation Heart: RRR, no murmur Abdomen: non-distended, no tenderness to palpation, +BS laboratory and microbiology Laboratory Tests 12/07/24 06:32 Test 12/07/24 06:32 Range/Units Serum Glucose 93 74-106 mg/dL Problems(with codes): (1) Diverticulitis (2) Perianal abscess (3) Acute kidney failure, unspecified (4) Sepsis, unspecified organism (5) Generalized weakness Prognosis Plan Continue IV antibiotics Stool softeners Advance diet as tolerated Patient could likely be discharged home on oral antibiotics and stool softeners when stable Outpatient follow up with me in 2-4 weeks to discuss elective outpatient colonoscopy Dietary Evaluation Review Comments: 1) Favian 1pk BID 2) Refer Social Science Instructor for diabetes education Expected Outcomes/Goals: wound to improve fu 3-5 days Plan discussed with: Other (Mal) Is the fluid challenge complet: Yes Date of Reassessment: Dec 03, 2024 Time of Reassessment: 11:00 Blood Culture Time: 09:14 Time Antibiotics Given: 09:29 Systolic BP: 119 Diastolic BP: 47 Blood Pressure Mean: 71 Respiration: 16 Respiratory Effort: Non-Labored Respiratory Pattern: Regular Oxygen Saturation: 96 Pulse Rate: 79 Pulse Location: Apical Pulse Strength: Normal Pulse Assessment Method: Auscultation Pulse Rhythm: Regular Capillary Refill: < 3 seconds Heart Sounds: S1 & S2 Breath sounds: Clear Skin Moisture: Dry Skin Tugor: WNL Skin Color: WNL RICARDO TRUONG MD Dec 08, 2024 17:21
--- NOTE | 2024-12-08 23:56 | DVHPN2 ---
Progress Note - Dictate Date Seen: Dec 08, 2024 Medical Necessity Reason Pt with a Central, PICC or Fol: No Subjective Patient was seen and evaluated in follow up. Patient complains of mild abdominal discomfort. Patient is pending SNF placement. Telemetry reviewed. vital signs Vital Sign Date Time Temp Pulse Resp B/P (MAP) Pulse Ox O2 Delivery O2 Flow Rate FiO2 12/08/24 10:40 116/69 12/08/24 09:00 97.6 93 20 95 97.6 12/08/24 08:00 Room Air* 0 21 Total Intake and Output 12/07/24 12/07/24 12/08/24 15:00 23:00 07:00 Intake Total 150 ml 1580 ml 445 ml Output Total 1500 ml Balance 150 ml 80 ml 445 ml medications Current Medications Medications Dose Ordered Sig/Roberto Route Start Time Stop Time Status Last Admin Dose Admin Ondansetron HCl 4 mg Q4HP PRN IV 12/03/24 13:15 Docusate Sodium 100 mg BIDPRN PRN PO 12/03/24 13:15 Acetaminophen 650 mg Q6HP PRN PO 12/03/24 13:15 12/05/24 18:17 650 MG Morphine Sulfate 2 mg Q30M PRN IV 12/03/24 14:15 Nitroglycerin 0.4 mg Q5MINP PRN SL 12/03/24 13:45 Lisinopril 20 mg DAILY PO 12/07/24 10:00 12/08/24 10:40 20 MG Prednisolone Acetate 1 drop QID EACHEYE 12/06/24 18:00 12/08/24 12:02 1 DROP Ceftriaxone Sodium 50 ml @ 100 mls/hr DAILY@09 IV 12/07/24 18:00 12/08/24 10:36 100 MLS/HR Metronidazole 500 mg Q8HR PO 12/07/24 22:00 12/08/24 05:14 500 MG objective GENERAL: Alert and oriented x 3. No acute distress. EYES: PERRL, EOMI. Anicteric. HENT: Moist mucous membranes. LUNGS: Clear to auscultation bilaterally. CARDIOVASCULAR: Regular rate and rhythm. ABDOMEN: Soft, non-tender and non-distended. EXTREMITIES: No edema. NEUROLOGIC: No focal neurological deficits. SKIN: Warm, dry. laboratory and microbiology Laboratory Tests 12/07/24 06:32 Test 12/07/24 06:32 Range/Units Serum Glucose 93 74-106 mg/dL Problem List Hypotension in the setting of severe sepsis. Prolonged QTc interval. History of hypertension. Right perianal soft tissue emphysema. Acute kidney injury. Dementia. History of tobacco use. Assessment/Plan Continued all current supportive medical care. IV antibiotics as ordered. Morphine and Tylenol for pain management. Nitro SL. Lisinopril. Additional plan as per the hospital course. Plan discussed with: Patient Is the fluid challenge complet: Yes Date of Reassessment: Dec 03, 2024 Time of Reassessment: 11:00 Blood Culture Time: 09:14 Time Antibiotics Given: 09:29 Systolic BP: 119 Diastolic BP: 47 Blood Pressure Mean: 71 Respiration: 16 Respiratory Effort: Non-Labored Respiratory Pattern: Regular Oxygen Saturation: 96 Pulse Rate: 79 Pulse Location: Apical Pulse Strength: Normal Pulse Assessment Method: Auscultation Pulse Rhythm: Regular Capillary Refill: < 3 seconds Heart Sounds: S1 & S2 Breath sounds: Clear Skin Moisture: Dry Skin Tugor: WNL Skin Color: WNL ALBERTO SERRATO MD Dec 08, 2024 13:32
[2024-12-09] VITALS (8 sets, daily range): BP systolic 105–135; BP diastolic 57–75; PULSE 73–90; RESP 16–18; TEMP 97.5–97.9; O2SAT 94–97
--- NOTE | 2024-12-09 15:06 | DVHPN2 ---
Subjective The patient seems him at bedside. No complaint today. Reviewed: Care Plan, H&P, Labs, Medications Changes from previous H/P or p: No Changes Eyes: No Pain, No Vision change, No Conjunctivae inflammation, No Eyelid inflammation, No Other, No Redness ENT: No Ear pain, No Ear discharge, No Nose pain, No Nose discharge, No Nose congestion, No Mouth pain, No Mouth swelling, No Throat pain, No Throat swelling, No Other Cardiovascular: No Chest Pain, No Palpitations, No Orthopnea, No Paroxysmal Noc. Dyspnea, No Edema, No Lt Headedness; Other (Hypotension) Respiratory: Cough; No Dry, No Shortness of breath, No SOB with excertion, No Wheezing, No Hemoptysis, No Pleuritic Pain, No Sputum, No Other Gastrointestinal: No Nausea, No Vomiting, No Abdominal Pain, No Diarrhea, No Constipation, No Melena, No Hematochezia, No Other Genitourinary: No Dysuria, No Frequency, No Incontinence, No Hematuria, No Retention, No Other Musculoskeletal: No other, No neck pain, No shoulder pain, No arm pain, No back pain, No hand pain, No leg pain, No foot pain Skin: No Rash, No Lesions, No Jaundice, No Bruising; Other (Sacrum has a 1 in incisional wound no discharge, mild redness surrounding it.) Objective Vitals Vital Signs Date Time Temp Pulse Resp B/P (MAP) Pulse Ox O2 Delivery O2 Flow Rate FiO2 12/09/24 12:50 97.5 83 16 135/70 (91) 94 97.5 12/09/24 08:00 Room Air* 0 21 Intake/Output Intake and Output 12/09/24 07:00 Intake Total 1210 ml Output Total 1500 ml Balance -290 ml Intake Oral 1160 ml IV Total 50 ml Output Urine Total 1500 ml General Appearance: Alert, Oriented X3, Cooperative, mild distress HEENT: Atraumatic, PERRLA Lungs: Clear to auscultation, Normal air movement Cardiovascular: Normal S1, Normal S2 Abdomen: Normal bowel sounds, Soft, Other (Tenderness to suprapubic pain) Genitourinary: No Apparent Abnormalities, Bladder Flat Musculoskeletal: Normal sensory function, Normal motor function Neuro: Sensation intact, Cranial nerves 3-12 NL Skin: Dry, Intact, Wounds (See nurse notes and pictures) Psych/Mental Status: Mental status NL, Mood NL Medications Current Medications Medications Dose Ordered Sig/Roberto Route Start Time Stop Time Status Last Admin Dose Admin Ondansetron HCl 4 mg Q4HP PRN IV 12/03/24 13:15 Docusate Sodium 100 mg BIDPRN PRN PO 12/03/24 13:15 Acetaminophen 650 mg Q6HP PRN PO 12/03/24 13:15 12/09/24 09:04 650 MG Morphine Sulfate 2 mg Q30M PRN IV 12/03/24 14:15 Nitroglycerin 0.4 mg Q5MINP PRN SL 12/03/24 13:45 Lisinopril 20 mg DAILY PO 12/07/24 10:00 12/09/24 09:05 20 MG Prednisolone Acetate 1 drop QID EACHEYE 12/06/24 18:00 12/09/24 11:29 1 DROP Ceftriaxone Sodium 50 ml @ 100 mls/hr DAILY@09 IV 12/07/24 18:00 12/09/24 09:07 100 MLS/HR Metronidazole 500 mg Q8HR PO 12/07/24 22:00 12/09/24 14:28 500 MG Laboratory Results Laboratory Tests 12/07/24 06:32 Urinalysis Test 12/03/24 08:48 Urine Color Yellow (Yellow) Urine Clarity Clear (Clear) Urine pH 6.0 (5.0-9.0) Urine Specific [place] 1.012 (1.001-1.035) Urine Protein Negative (Negative) Urine Ketones Negative (Negative) Urine Blood Negative /uL (Negative) Urine Nitrite Negative (Negative) Urine Bilirubin Negative (Negative) Urine Urobilinogen Normal mg/dL (Negative) Urine Leukocyte Esterase Negative /uL (Negative) Urine RBC 1 /hpf (0 - 4) Urine Microscopic WBC 1 /HPF (0-5) Urine Squamous Epithelial Cells Few /hpf (<5) Urine Bacteria None seen /hpf (None Seen) Urine Yeast (Budding) Occasional /hpf (None Urine Glucose Normal mg/dL (Normal) Microbiology Microbiology Date/Time Source Procedure Growth Status 12/03/24 09:14 Blood Blood Culture - Final NO GROWTH AFTER 5 DAYS OF INCUBATION. Complete Labs and/or images reviewed: Labs reviewed by me Assessment/Plan Assessment/Plan -Sepsis due to Acute Diverticulitis -septic shock -? Proctocolitis -recent gluteal abscess I&D -severe deconditioning with bed-bound status at this time -primary hypertension Plan: Continuing current management Continuing with physical therapy Continuing with antibiotic Rocephin and Flagyl Continuing with PPI Waiting for halfway home facility placement Discussed with social work specialist. This medical document was created using an electronic medical record system with [employer] direct computerized dictation system. Although this document has been carefully reviewed, there may still be some phonetic and typographical errors. These areas are purely typographical due to imperfections of the software programs, and do not reflect any compromise in the patient's medical care. Plan discussed with: Patient My Orders Orders - JACINTA WHEELER MD Procedure Category Date Status Time Apply Barrier Cream HAILY 12/08/24 In Process 12:50 * Dietary Consult CONS 12/08/24 Transmitted 18:43 Date of Service: Dec 09, 2024 Billing Provider: JACINTA WHEELER MD Common Visit Codes: [id number] INP/OBS CARE(HIGH) JACINTA WHEELER MD Dec 09, 2024 15:06
--- NOTE | 2024-12-09 22:41 | DVHPN2 ---
Progress Note - Dictate Date Seen: Dec 09, 2024 Medical Necessity Reason Pt with a Central, PICC or Fol: No Subjective Patient was seen and evaluated in follow up. No overnight events. Patient complains of abdominal discomfort. CM is working on SNF placement. Telemetry reviewed. vital signs Vital Sign Date Time Temp Pulse Resp B/P (MAP) Pulse Ox O2 Delivery O2 Flow Rate FiO2 12/09/24 12:50 97.5 83 16 135/70 (91) 94 97.5 12/09/24 08:00 Room Air* 0 21 Total Intake and Output 12/08/24 12/08/24 12/09/24 15:00 23:00 07:00 Intake Total 290 ml 320 ml 600 ml Output Total 400 ml 1100 ml Balance 290 ml -80 ml -500 ml medications Current Medications Medications Dose Ordered Sig/Roberto Route Start Time Stop Time Status Last Admin Dose Admin Ondansetron HCl 4 mg Q4HP PRN IV 12/03/24 13:15 Docusate Sodium 100 mg BIDPRN PRN PO 12/03/24 13:15 Acetaminophen 650 mg Q6HP PRN PO 12/03/24 13:15 12/09/24 09:04 650 MG Morphine Sulfate 2 mg Q30M PRN IV 12/03/24 14:15 Nitroglycerin 0.4 mg Q5MINP PRN SL 12/03/24 13:45 Lisinopril 20 mg DAILY PO 12/07/24 10:00 12/09/24 09:05 20 MG Prednisolone Acetate 1 drop QID EACHEYE 12/06/24 18:00 12/09/24 11:29 1 DROP Ceftriaxone Sodium 50 ml @ 100 mls/hr DAILY@09 IV 12/07/24 18:00 12/09/24 09:07 100 MLS/HR Metronidazole 500 mg Q8HR PO 12/07/24 22:00 12/09/24 06:08 500 MG objective GENERAL: Alert and oriented x 3. No acute distress. EYES: PERRL, EOMI. Anicteric. HENT: Moist mucous membranes. LUNGS: Clear to auscultation bilaterally. CARDIOVASCULAR: Regular rate and rhythm. ABDOMEN: Soft, non-tender and non-distended. EXTREMITIES: No edema. NEUROLOGIC: No focal neurological deficits. SKIN: Warm, dry. laboratory and microbiology Laboratory Tests 7/18/25 06:32 Test 12/07/24 06:32 Range/Units Serum Glucose 93 74-106 mg/dL Problem List Hypotension in the setting of severe sepsis. Prolonged QTc interval. History of hypertension. Right perianal soft tissue emphysema. Acute kidney injury. Dementia. History of tobacco use. Assessment/Plan Continued all current supportive medical care. Antibiotics as ordered. Morphine and Tylenol for pain management. Nitro SL. Lisinopril. Additional plan as per the hospital course. Dietary Evaluation Review Comments: 1) Favian 1pk BID 2) Refer Programming Development Project Manager for diabetes education Expected Outcomes/Goals: wound to improve fu 3-5 days Plan discussed with: Patient Is the fluid challenge complet: Yes Date of Reassessment: Dec 03, 2024 Time of Reassessment: 11:00 Blood Culture Time: 09:14 Time Antibiotics Given: 09:29 Systolic BP: 119 Diastolic BP: 47 Blood Pressure Mean: 71 Respiration: 16 Respiratory Effort: Non-Labored Respiratory Pattern: Regular Oxygen Saturation: 96 Pulse Rate: 79 Pulse Location: Apical Pulse Strength: Normal Pulse Assessment Method: Auscultation Pulse Rhythm: Regular Capillary Refill: < 3 seconds Heart Sounds: S1 & S2 Breath sounds: Clear Skin Moisture: Dry Skin Tugor: WNL Skin Color: WNL ALBERTO SERRATO MD Dec 09, 2024 14:19
[2024-12-10 01:00] VITALS: BP 116/64; PULSE 76; RESP 17; TEMP 97.8; O2SAT 95
[2024-12-10 04:50] VITALS: BP 129/69; PULSE 77; RESP 17; TEMP 97.9; O2SAT 95
[2024-12-10 08:00] VITALS: PULSE 87; RESP 18; O2SAT 94
[2024-12-10 09:00] VITALS: BP_SYST 100; BP_SYST 114; BP_DIAS 48; BP_DIAS 67; PULSE 77; PULSE 87; RESP 16; RESP 18; TEMP 98.4; TEMP 98.6; O2SAT 94; O2SAT 99
[2024-12-10 12:59] VITALS: BP 132/75; PULSE 79; RESP 18; TEMP 98.5; O2SAT 96
--- NOTE | 2024-12-10 15:34 | DVHDS2 ---
Discharge Summary Date of Admission Dec 03, 2024 at 13:14 Date of Discharge: Dec 10, 2024 Admitting Diagnosis Sepsis Labs/Diagnostic Data: Laboratory Results Test 12/07/24 06:32 12/06/24 02:00 12/04/24 03:24 12/03/24 14:10 White Blood Count 9.4 10^3/uL (4.4-10.8) Red Blood Count 3.56 10^6/uL (4.0-5.20) Hemoglobin 11.1 g/dL (12.2-16.2) Hematocrit 32.6 % (36.0-46.0) Mean Corpuscular Volume 91.6 fL (80.0-100.0) Mean Corpuscular Hemoglobin 31.1 pg (28.0-32.0) Mean Corpuscular Hemoglobin Concent 34.0 g/dL (32.0-36.0) Red Cell Distribution Width 14.7 % (11.8-14.3) Platelet Count 296 10^3/uL (140-450) Mean Platelet Volume 7.5 fL (6.9-10.8) Neutrophils (%) (Auto) 62.4 % (37.0-80.0) Lymphocytes (%) (Auto) 22.2 % (10.0-50.0) Monocytes (%) (Auto) 10.4 % (0.0-12.0) Eosinophils (%) (Auto) 3.5 % (0.0-7.0) Basophils (%) (Auto) 1.5 % (0.0-2.0) Neutrophils # (Auto) 5.9 10 ^3/uL (1.6-8.6) Lymphocytes # (Auto) 2.1 10 ^3/uL (0.4-5.4) Monocytes # (Auto) 1.0 10 ^3/uL (0-1.3) Eosinophils # (Auto) 0.3 10 ^3/uL (0-0.8) Basophils # (Auto) 0.1 10 ^3/uL (0-0.2) Nucleated Red Blood Cells 0.2 % Sodium Level 138 mmol/L (136-145) Potassium Level 3.5 mmol/L (3.5-5.1) Chloride Level 107 mmol/L (98-107) Carbon Dioxide Level 22 mmol/L (20-31) Anion Gap 9 (5-15) Blood Urea Nitrogen 8 mg/dL (9-23) Creatinine 0.58 mg/dL (0.550-1.02) Glomerular Filtration Rate Calc 94 mL/min (>90) BUN/Creatinine Ratio 13.8 (10.0-20.0) Serum Glucose 93 mg/dL (74-106) Calcium Level 9.5 mg/dL (8.7-10.4) Vancomycin Level Trough 18.6 ug/mL (5-10) Total Bilirubin 0.4 mg/dL (0.2-1.0) Aspartate Amino Transferase (AST) 14 U/L (13-40) Alanine Aminotransferase (ALT) 11 U/L (7-40) Alkaline Phosphatase 47 U/L (46-116) Total Protein 5.1 g/dL (5.7-8.2) Albumin 3.3 g/dL (3.2-4.8) Carcinoembryonic Antigen 1.20 ng/mL (<=5.0) Random Vancomycin Level 7.2 ug/mL (5-10) POC Glucose 97 mg/dl (70-106) Test 12/03/24 09:14 12/03/24 08:48 Prothrombin Time 12.2 sec (9.3-11.8) Prothrombin Time INR 1.17 (0.9-1.15) Activated Partial Thromboplast Time 27.4 SEC (24.5-34.5) Hemoglobin A1c 5.5 % A1C (<5.7) Lactic Acid Level 1.9 mmol/L (0.4-2.0) Magnesium Level 1.7 mg/dL (1.6-2.6) Triglycerides Level 115 mg/dL (< 150) Cholesterol Level 129 mg/dL (< 200) LDL Cholesterol 81 mg/dL (< 100) HDL Cholesterol 31 mg/dL (40-59) Thyroid Stimulating Hormone (TSH) 1.07 uIU/mL (0.55-4.78) Urine Color Yellow (Yellow) Urine Clarity Clear (Clear) Urine pH 6.0 (5.0-9.0) Urine Specific [place] 1.012 (1.001-1.035) Urine Protein Negative (Negative) Urine Ketones Negative (Negative) Urine Blood Negative /uL (Negative) Urine Nitrite Negative (Negative) Urine Bilirubin Negative (Negative) Urine Urobilinogen Normal mg/dL (Negative) Urine Leukocyte Esterase Negative /uL (Negative) Urine RBC 1 /hpf (0 - 4) Urine Microscopic WBC 1 /HPF (0-5) Urine Squamous Epithelial Cells Few /hpf (<5) Urine Bacteria None seen /hpf (None Seen) Urine Yeast (Budding) Occasional /hpf (None Urine Glucose Normal mg/dL (Normal) Other Laboratory Tests 12/07/24 06:32 Brief Hx & Hospital Course: History of Present Illness The patient is a 74-year-old female with past medical history of appendicitis who presented to [facility] ED with complaint of generalized weakness. As reported by EMS, patient was recently discharged from [facility] after having remove an abscess in the buttocks area, hypotensive on the scene of 50/30, unable to work. Patient was stabilized EN route to our facility ED. patient was seen and evaluated in the ED, laboratory data shows WBC 17.3, hemoglobin 11.4, hematocrit 33.6, platelets 406, sodium 135, potassium 3.9, BUN 32, creatinine 1.78, glucose 137, calcium 10.0, blood pressure 88/21 trending up to 90/37, heart rate 72, temperature 97.6 F, O2 saturation 96% on oxygen. Abdomen/pelvis CT revealing right perianal region/right medial soft tissue stranding and soft tissue emphysema which could be secondary to infectious, inflammatory etiologies; this is associated rectal/and now wall thickening, possibly secondary to proctocolitis. Patient was started on IV Levophed, antibiotic regimen vancomycin, please see medication orders section in the computer. On my assessment, patient denied chest pain, no headache, no dizziness, no diaphoresis, no shortness of breath, no nausea, no vomiting, no fever, no chills. Patient was admitted for further evaluation and medical management. Course of hospitalization: Patient was started on norepinephrine drip, which was weaned off. Wound cultures, blood cultures were performed. CT scan revealed proctocolitis with acute diverticulitis. Patient has white blood cell count normalized. Antibiotic therapy was deescalated to cefepime and Flagyl while in the hospital. Long discussion was made with the patient's son, Kenyon who states that her ability to ambulate has deteriorated over the past several weeks since being discharged from [facility]. Physical therapy was started while in the hospital with the patient noted to ambulate approximately 35 ft. Patient states that she is feeling stronger. Given her failure of oral antibiotic therapy as well as physical therapy in the home, all parties are agreeable to be discharged to a assisted facility. Patient had medication reconciliation with her home antihypertensives initially being stopped, with reinstitution of lisinopril once blood pressure improved while in the Medical/Surgical floor. Patient will be continued on p.o. Flagyl as well as home medications per med rec form. All questions answered. Physical examination General: Alert and Oriented x3. No acute distress. Well-nourished. Obese Eyes: EOMI. Anicteric. HENT: Moist mucous membranes. Lungs: Clear to auscultation bilaterally. No accessory muscle use. Cardiovascular: Regular rate and rhythm. No murmur. No JVD. Abdomen: Soft, non-tender and non-distended. No palpable masses. Extremities: No edema. Non-tender. Skin: No rashes or lesions. Warm. Neurologic: No focal neurological deficits. CN II-XII grossly intact, but not individually tested. Psychiatric: Cooperative. Appropriate mood and affect. Total time spent with patient discussing and formulating plan of care: 35 minutes. Consults/Reason for consult Gastroenterology: Acute diverticulitis, proctocolitis Condition at Discharge: Fair Final Diagnosis/Problems List Sepsis -Sepsis due to Acute Diverticulitis -septic shock -? Proctocolitis -recent gluteal abscess I&D -severe deconditioning with bed-bound status at this time -primary hypertension Discharge Disposition: Intermediate Facility Discharge Instruct/Medications Diet: Cardiac 2g Na,low cholest Activity: No Restrictions, As Tolerated Follow Up/Referral: Per Accepting Provider Medications: See Medication Reconciliation form Miscellaneous Medications Ofloxacin (Otic) (Floxin Otic), (Reported) 36 Discharge Statement: "Patient was advised to return to the ER or call 911 if any headaches, dizziness, shortness of breath, chest pain, abdominal pain, bleeding, fevers, or worsening of medical condition. Patient was counseled about treatment plan, medications, possible side effects, patientverbalized understanding. All questions were answered to the best of my ability. This discharge took greater then 30 minutes in planning, reviewing documentation, counseling the patient, and discussing with other team members." ASSESSMENT ASSESSMENT Assessment Sepsis Date of Service: Dec 10, 2024 Billing Provider: RESHMA GUNDERSON NP Common Visit Codes: 66144-NAD/OBS DISCH DAY >30min RESHMA GUNDERSON NP Dec 10, 2024 15:34
[2024-12-10 17:27] VITALS: BP 127/70; PULSE 93; RESP 20; TEMP 98.4; O2SAT 95
--- NOTE | 2024-12-10 18:49 | DVHPN2 ---
Progress Note - Dictate Date Seen: Dec 10, 2024 Medical Necessity Reason Pt with a Central, PICC or Fol: No Subjective No new complaints, patient resting comfortably Tolerating diet. One bowel movement recorded yesterday Laboratory tests are improving; H&H is stable Abdominal pain is improving vital signs Vital Sign Date Time Temp Pulse Resp B/P (MAP) Pulse Ox O2 Delivery O2 Flow Rate FiO2 12/10/24 17:27 98.4 93 20 127/70 (89) 95 98.4 12/10/24 08:00 Room Air* 0 21 Total Intake and Output 12/09/24 12/09/24 12/10/24 15:00 23:00 07:00 Intake Total 530 ml 870 ml 500 ml Output Total 450 ml 700 ml Balance 530 ml 420 ml -200 ml medications Current Medications Medications Dose Ordered Sig/Roberto Route Start Time Stop Time Status Last Admin Dose Admin Ondansetron HCl 4 mg Q4HP PRN IV 12/03/24 13:15 Docusate Sodium 100 mg BIDPRN PRN PO 12/03/24 13:15 Acetaminophen 650 mg Q6HP PRN PO 12/03/24 13:15 12/09/24 09:04 650 MG Morphine Sulfate 2 mg Q30M PRN IV 12/03/24 14:15 Nitroglycerin 0.4 mg Q5MINP PRN SL 12/03/24 13:45 Lisinopril 20 mg DAILY PO 12/07/24 10:00 12/10/24 09:32 20 MG Prednisolone Acetate 1 drop QID EACHEYE 12/06/24 18:00 12/10/24 18:15 1 DROP Ceftriaxone Sodium 50 ml @ 100 mls/hr DAILY@09 IV 12/07/24 18:00 12/10/24 09:33 100 MLS/HR Metronidazole 500 mg Q8HR PO 12/07/24 22:00 12/10/24 13:56 500 MG objective General: NAD, AAOX3 Chest: lung santiago clear to auscultation Heart: RRR, no murmur Abdomen: non-distended, no tenderness to palpation, +BS laboratory and microbiology Laboratory Tests 12/07/24 06:32 Test 12/07/24 06:32 Range/Units Serum Glucose 93 74-106 mg/dL Problems(with codes): (1) Diverticulitis (2) Perianal abscess (3) Generalized weakness Prognosis Plan Patient is awaiting transfer to [facility] for ongoing PT and medical care Continue IV antibiotics Outpatient follow up with GI Services in 4-6 weeks for elective colonoscopy Dietary Evaluation Review Comments: 1) Favian 1pk BID 2) Refer Certified Adapted Physical Educator for diabetes education Expected Outcomes/Goals: wound to improve fu 3-5 days Plan discussed with: Other (None) Is the fluid challenge complet: Yes Date of Reassessment: Dec 03, 2024 Time of Reassessment: 11:00 Blood Culture Time: 09:14 Time Antibiotics Given: 09:29 Systolic BP: 119 Diastolic BP: 47 Blood Pressure Mean: 71 Respiration: 16 Respiratory Effort: Non-Labored Respiratory Pattern: Regular Oxygen Saturation: 96 Pulse Rate: 79 Pulse Location: Apical Pulse Strength: Normal Pulse Assessment Method: Auscultation Pulse Rhythm: Regular Capillary Refill: < 3 seconds Heart Sounds: S1 & S2 Breath sounds: Clear Skin Moisture: Dry Skin Tugor: WNL Skin Color: WNL RICARDO TRUONG MD Dec 10, 2024 18:49
--- NOTE | 2024-12-10 22:54 | DVHPN2 ---
Progress Note - Dictate Date Seen: Dec 10, 2024 Medical Necessity Reason Pt with a Central, PICC or Fol: No Subjective Patient was seen and evaluated in follow up. Patient has no new complaints at this time. Patient denies any cardiac symptoms. Patient is cardiac stable for discharge. Telemetry reviewed. vital signs Vital Sign Date Time Temp Pulse Resp B/P (MAP) Pulse Ox O2 Delivery O2 Flow Rate FiO2 12/10/24 17:27 98.4 93 20 127/70 (89) 95 98.4 12/10/24 08:00 Room Air* 0 21 Total Intake and Output 12/09/24 12/09/24 12/10/24 15:00 23:00 07:00 Intake Total 530 ml 870 ml 500 ml Output Total 450 ml 700 ml Balance 530 ml 420 ml -200 ml objective GENERAL: Alert and oriented x 3. No acute distress. EYES: PERRL, EOMI. Anicteric. HENT: Moist mucous membranes. LUNGS: Clear to auscultation bilaterally. CARDIOVASCULAR: Regular rate and rhythm. ABDOMEN: Soft, non-tender and non-distended. EXTREMITIES: No edema. NEUROLOGIC: No focal neurological deficits. SKIN: Warm, dry. laboratory and microbiology Laboratory Tests 12/07/24 06:32 Test 12/07/24 06:32 Range/Units Serum Glucose 93 74-106 mg/dL Problem List Hypotension in the setting of severe sepsis. Prolonged QTc interval. History of hypertension. Right perianal soft tissue emphysema. Acute kidney injury. Dementia. History of tobacco use. Assessment/Plan Continued all current supportive medical care. Antibiotics as ordered. Morphine and Tylenol for pain management. Nitro SL. Lisinopril. Additional plan as per the hospital course. Dietary Evaluation Review Comments: 1) Favian 1pk BID 2) Refer Gunstock Repairer for diabetes education Expected Outcomes/Goals: wound to improve fu 3-5 days Plan discussed with: Patient Is the fluid challenge complet: Yes Date of Reassessment: Dec 03, 2024 Time of Reassessment: 11:00 Blood Culture Time: 09:14 Time Antibiotics Given: 09:29 Systolic BP: 119 Diastolic BP: 47 Blood Pressure Mean: 71 Respiration: 16 Respiratory Effort: Non-Labored Respiratory Pattern: Regular Oxygen Saturation: 96 Pulse Rate: 79 Pulse Location: Apical Pulse Strength: Normal Pulse Assessment Method: Auscultation Pulse Rhythm: Regular Capillary Refill: < 3 seconds Heart Sounds: S1 & S2 Breath sounds: Clear Skin Moisture: Dry Skin Tugor: WNL Skin Color: WNL ALBERTO SERRATO MD Dec 10, 2024 22:54
== END 2024-12-10 19:25 | DRG 871 ==
LOC: ER 08:25 → EDBD 08:25 → OVERFLOW 13:14 → ER 13:30 → TELE-WESTW 12-04 11:40
PROVIDERS: ADMIT Nurse Practitioner Acute Care; ATTEND Nurse Practitioner Acute Care
DX: A41.9 Sepsis, unspecified organism (principal); R65.21 Severe sepsis with septic shock; N17.9 Acute kidney failure, unspecified; K57.32 Diverticulitis of large intestine without perforation or abscess without bleeding; E86.0 Dehydration; F03.90 Unspecified dementia, unspecified severity, without behavioral disturbance, psychotic disturbance, mood disturbance, and anxiety; I10 Essential (primary) hypertension; D64.9 Anemia, unspecified; K52.89 Other specified noninfective gastroenteritis and colitis; Z88.5 Allergy status to narcotic agent; Z94.7 Corneal transplant status; Z90.710 Acquired absence of both cervix and uterus; Z88.8 Allergy status to other drugs, medicaments and biological substances; Z87.891 Personal history of nicotine dependence; Z80.0 Family history of malignant neoplasm of digestive organs; Z87.19 Personal history of other diseases of the digestive system; Z74.01 Bed confinement status; Z79.899 Other long term (current) drug therapy
CPT/HCPCS: 36415; 71045; 74176; 80048; 80053; 80061; 80202; 81001; 82378; 82962; 83036; 83605; 83735; 84443; 85025; 85610; 85730; 87040; 93005; 93306; 96365; 97110; 97116; 97163; 97530; 99291; G0378; J3490

== ENCOUNTER 2025-04-07 20:21 | Emergency (ER) | payer MEDICARE, MEDICAID ==
[~2025-04-07] VITALS: Ht 172.7 cm; Wt 81.0 kg
[~2025-04-07 20:21] MED LIST: OFL50TS
--- NOTE | 2025-04-07 21:12 | ED.PDOC ---
History of Present Illness HPI Comments 74-year-old female who came to ER via EMS for fall injury. Patient has a history of dementia, resides at [facility]. Has a unwitnessed fall earlier, found by caregivers lying of the floor beside her bed. Currently complaining of headaches, noted hematoma in the back of her head. Patient is not on any blood thinners. Blood sugar on scene was 104 REVIEW OF SYSTEMS: General: No fever, no chills, or fatigue HEENT: No sore throat, no earache, no congestion, no neck pain. Cardiac: No chest pain. No palpitations. Lungs: No shortness of breath, no cough. GI: No nausea, no vomiting, no diarrhea, no constipation, no abdominal pain : No dysuria, frequency, or urgency. No hematuria. Musculoskeletal: No joint pain , no joint swelling, no extremity edema. Skin: No rash, no itching. Neuro: (+) headache, no dizziness, no weakness (+) dementia EXAM: General: Awake, alert and oriented. No acute distress. Skin: Skin in warm, dry and intact. Appropriate color for ethnicity. HEENT: The head is normocephalic and atraumatic. Conjunctivae are clear without exudates or hemorrhage. Sclera is non-icteric. EOM are intact. No signs of nystagmus. Eyelids are normal in appearance without swelling or lesions. Oral mucosa is pink and moist. Hematoma right occipital area. Or laceration. Neck: The neck is supple with normal range of motion. No JVD. C-collar in place. C-spine tenderness. Cardiac: Heart rate and rhythm are normal. No murmurs, gallops, or rubs are auscultated. Respiratory: No signs of respiratory distress. Lung sounds are clear in all lobes bilaterally without rales, rhonchi, or wheezes. Abdominal: Abdomen is soft, non-tender without distention. Bowel sounds are present and normoactive in all four quadrants. Extremities: Upper and lower extremities are atraumatic in appearance without deformity or edema. Neurological: The patient is awake, alert and oriented to person, place, and time with normal speech. Speech is clear. There is no facial asymmetry. Normal movement of upper and lower extremities. No concerning weakness. Psychiatric: Appropriate mood and affect. Good judgement and insight Chief Complaint: Fall Injury Time Seen by MD: 21:12 Reviewed Notes: Nurses Notes Allergies: Coded Allergies: Codeine (Verified Allergy, Unknown, 12/03/24) Statins (Verified Allergy, Unknown, 12/03/24) Home Meds Reported Medications Ofloxacin (Otic) (FLOXIN OTIC) 1 Drop 12/06/24 Information Source: Patient, Emergency Med Personnel Mode of Arrival: EMS Past Medical History PAST MEDICAL HISTORY: Dementia Surgical History: Appendectomy TOWN CLERK History: No Pertinent TOWN CLERK History Family History Family History: Reviewed,noncontributory to illness, Unknown Social History Smoker: Non-Smoker Alcohol: Denies ETOH Use Drugs: Denies Drug Use Lives In: [facility] Was a procedure done? Was a procedure done?: No Differential Dx Considerations may include: DDX includes MSK trauma, facial fractures, ICH or traumatic SAH, C-spine injury, other X-Ray, Labs, Meds, VS Vital Signs Date Time Temp Pulse Resp B/P (MAP) Pulse Ox O2 Delivery O2 Flow Rate FiO2 04/07/25 20:56 92 04/07/25 20:21 97.7 90 16 116/70 96 97.7 Time of 1ST Reevaluation: 21:09 Reevaluation 1ST: Unchanged Patient Education/Counseling: Need For Follow Up Family Education/Counseling: No Family Present SEPSIS Sepsis Screen Date sepsis recognized/suspect: Apr 07, 2025 Time Sepsis recognized/suspect: 2020 Recent Procedure: No On Antibiotic Therapy: No Respiratory Rate >20: No Heart Rate >90: No Temp<36 C (96.8 F) or >38.3 C: No SBP <90 or MAP <65 mmHG: No New Acute Mental Status Change: No Is the patient on CPAP, BIPAP,: No Physician Orders Head Without Contrast (04/07/25 21:41) Cervical Without Contrast (04/07/25 21:41) Vital Signs Date Time Temp Pulse Resp B/P (MAP) Pulse Ox O2 Delivery O2 Flow Rate FiO2 04/07/25 20:56 92 04/07/25 20:21 97.7 90 16 116/70 96 97.7 Departure 1 Departure Time of Disposition: 23:56 Impression: Primary Impression: Head injury Additional Impressions: Hematoma Fall Disposition: HOME / SELF CARE / HOMELESS Condition: Stable Additional Instructions: ED DISCHARGE INSTRUCTIONS Instructions: Please read all instructions provided in this packet carefully. Although you have been discharged from the Emergency Department, this does not mean that you have a "clean bill of health". No definitive diagnosis for your symptoms has been made today. It is possible that you are in the process of developing a serious illness. This is why you must return to the ED without fail if any new or worsening symptoms (especially if your symptoms include chest pain, trouble breathing, abdominal pain, fever, headache, confusion, trouble seeing, or trouble walking) It is also very important that you see a primary care provider (PCP) within the next 3-5 days to follow up. If you are unable to get an appointment, return to the ED for re-evaluation. Head Injury: Care Instructions Overview Most injuries to the head are minor. Bumps, cuts, and scrapes on the head and face usually heal well and can be treated the same as injuries to other parts of the body. Although it's rare, once in a while a more serious problem shows up after you are home. So it's good to be on the lookout for symptoms for a day or two. Follow-up care is a stover part of your treatment and safety. Be sure to make and go to all appointments, and call your doctor if you are having problems. It's also a good idea to know your test results and keep a list of the medicines you take. How can you care for yourself at home? Follow your doctor's instructions. The doctor will tell you if you need someone to watch you closely for the next 24 hours or longer. Take it easy for the next few days or more if you are not feeling well. Ask your doctor when it's okay for you to go back to activities like driving a car, riding a bike, or operating machinery. When should you call for help? Call 911 anytime you think you may need emergency care. For example, call if: You have a seizure. You passed out (lost consciousness). You are confused or can't stay awake. You have a headache that gets worse and does not go away. You have new vision changes or one pupil (the black part in the middle of the eye) that is larger than the other. You have slurred speech, balance problems, or decreased coordination. Call your doctor now or seek immediate medical care if: You have new or worse vomiting. You feel less alert. You have new weakness or numbness in any part of your body. You have new symptoms, such as unclear thinking or changes in mood. Watch closely for changes in your health, and be sure to contact your doctor if: You do not get better as expected. Credits for Head Injury: Care Instructions Current as of: May 11, 2023 Author: [employer] Staff Comments 74-year-old female presents with head injury.. Given mechanism, history, and physical exam findings, we have a low probability of serious injury to include intracranial bleed or skull fracture, ENRIQUE, or high risk of decompensation. Given lack of a severe mechanism, GCS 15 or lack of AMS, no occipital/parietal scalp no LOC, The patient has been ambulating, able to tolerate p.o., awake, alert. Patient is felt stable for discharge back to assisted living facility. Patient should follow up with the primary care provider for re-evaluation and return to the emergency department with any new, worsening or concerning symptoms. Critical Care Note Critical Care Time?: No Stability Stability form required: No Heart Score Heart Score: Heart Score Response (Comments) Value History N/A 0 EKG N/A 0 Age N/A 0 Risk Factors N/A 0 Troponin N/A 0 Total 0 I personally scribed for NAEEM GROSS MD ([email or web address]) on 04/07/25 at 21:12. Electronically submitted by Tanner Perez ([facility]). NAEEM GROSS MD Apr 07, 2025 21:12
--- NOTE | 2025-04-07 22:57 | ECG ---
[facility] Test Date: 2025-04-07 Test Time: 20:56:00 Pat Name: TONO JIMÉNEZ Department: ED Room: Gender: F Face Man: marie : 1950 Requested By: EMERGENCY EMERGENCY Order Number: [id number] Reading MD: Chilo Barnes Measurements Intervals [place] Rate: 92 P: 47 W[place]: 155 QRS: 31 QRSD: 105 T: -77 QT: 411 QTc: 509 Interpretive Statements Sinus rhythm Inferior infarct, age indeterminate Lateral leads are also involved Prolonged QT interval Artifact in lead(s) I,II,III,aVR,aVL,V2 Electronically Signed On 04-09-2025 17:57:23 PST by Chilo Barnes Please click the below link to view image of tracing.
--- NOTE | 2025-04-07 23:34 | DVH ---
EXAM: CT HEAD WITHOUT CONTRAST INDICATION: Fall, head injury TECHNIQUE: CT of the head without intravenous contrast. Radiation Dose : 1. Head: CT Dose: CTDI volume is 62.46 mGy. Dose-length product is 1350.42 mGy*cm The dose indicators for CT are the volume Computed Tomography (CT) Dose Index (CTDIvol) and the Dose Length Product (DLP), and are measured in units of mGy and mGy-cm, respectively. These indicators are not patient dose, but values generated from the CT scanner acquisition factors. The report includes radiation exposure data for exposures received during this examination. COMPARISON: None FINDINGS: Brain: No acute hemorrhage, mass effect, or cerebral edema. Patchy periventricular white matter hypodensity and global parenchymal volume loss. CSF Spaces: Mild symmetric enlargement. Bones/Soft Tissues: No acute fracture. Possible small right posterior scalp hematoma. Orbits/Sinuses/Mastoids: No acute abnormality. Lens postsurgical changes. IMPRESSION: 1. No acute intracranial abnormality. Radiation optimization: All CT scans at this facility use at least one of these dose optimization techniques: automated exposure control mA and/or kV adjustment per patient size (includes targeted exams where dose is matched to clinical indication) or iterative reconstruction.
--- NOTE | 2025-04-07 23:35 | DVH ---
CLINICAL HISTORY: Follow up from a head injury neck injury TECHNIQUE: CT exam of the cervical spine was performed without intravenous contrast. This exam was performed according to our departmental dose optimization program. Up-to-date CT equipment and radiation dose reduction techniques are utilized as appropriate. CTDI 13.6 mGy DLP 1350.4 mGy.cm COMPARISON: None FINDINGS: There is no acute displaced fracture. There are degenerative changes of the cervical spine characterized by endplate osteophytosis. There is scoliosis. Degenerative uncovertebral and facet hypertrophy contribute to mild multilevel neural foraminal narrowing. The paraspinal soft tissues are unremarkable. IMPRESSION: 1. No acute displaced fracture. 2. Degenerative changes of the cervical spine as detailed.
[2025-04-08] MEDS ORDERED: ACETAMINOPHEN 325 MG TAB PO ONE
[2025-04-08 08:21] VITALS: BP 132/64; PULSE 95; RESP 23; TEMP 98.2; O2SAT 97
== END 2025-04-08 10:19 | disposition home or self-care (01) ==
LOC: ER 20:21 → EDBD 20:21 → ER 04-08 10:18
DX: S00.83XA Contusion of other part of head, initial encounter (principal); F03.90 Unspecified dementia, unspecified severity, without behavioral disturbance, psychotic disturbance, mood disturbance, and anxiety; Z90.49 Acquired absence of other specified parts of digestive tract; Z79.899 Other long term (current) drug therapy; Z88.5 Allergy status to narcotic agent; Z88.8 Allergy status to other drugs, medicaments and biological substances; W06.XXXA Fall from bed, initial encounter; Y93.89 Activity, other specified; Y92.89 Other specified places as the place of occurrence of the external cause; Y99.8 Other external cause status
CPT/HCPCS: 70450; 72125; 93005